=== PATIENT | female | born 1940 | race Caucasian/White ===

== ENCOUNTER → 2018-11-27 15:04 | Outpatient (CLI) | payer MEDICARE, MEDICAID, SELFPAY ==
--- NOTE | 2018-11-27 15:08 | DI.ECHO.S_ITS ---
[place] [facility]---------+ [facility] +---------+ : : [address] : [address] : : : : [id number] : : : : Phone: [phone]+ Echocardiogram Report + + :Name: ROCIO CARRASQUILLO Study Date: 11/27/2018 Height: 67 in : :[facility] Exam Location: [facility] Weight: 124 lb : : Gender: Female BSA: 1.7 m2 : :: 1940 Age: 78 yrs BP: 148/80 mmHg: :Reason For Study: CHF : : Performed By: Tahir Butler : :Referring: MYLA KRAUS R : + + Interpretation Summary The left ventricle is normal in size. Left ventricular systolic function is normal without focal wall motion abnormalities. The ejection fraction is estimated to be 60-65%. Left ventricular systolic function has markedly improved compared to the previous exam. The right ventricle is normal in size and function. The right ventricular systolic pressure is estimated to be at least 35 mmHg based on an estimated right atrial pressure of 3 mm Hg. Both atria are severely dilated. There is borderline mitral valve prolapse. There is moderate to severe mitral regurgitation. Compared to the prior echo study, there has been an increase in the severity of mitral regurgitation. There is no other significant valvular heart disease. The aortic root is normal size. Procedure: A two-dimensional transthoracic echocardiogram with color flow and Doppler was performed. The study quality was technically good. Comparison is made with the echocardiogram of 12/17/14. The patient was in atrial fibrillation with rapid ventricular response during the exam with a heart rate exceeding 100 bpm. The patient had a heart rate of 80-118 beats per minute. Left Ventricle: The left ventricle is normal in size. There is normal left ventricular wall thickness. Left ventricular systolic function is normal without focal wall motion abnormalities. The ejection fraction is estimated to be 60-65%. Left ventricular systolic function has markedly improved compared to the previous exam. Right Ventricle: The right ventricle is normal in size and function. Atria: Both atria are severely dilated. The interatrial septum is intact with no evidence for an atrial septal defect. Mitral Valve: The mitral valve is normal in structure but abnormal in function. There is borderline mitral valve prolapse. There is moderate to severe mitral regurgitation. Compared to the prior echo study, there has been an increase in the severity of mitral regurgitation. Aortic Valve: The aortic valve is trileaflet. The aortic valve opens well. No aortic regurgitation is present. Tricuspid Valve: The tricuspid valve is normal in structure and function. There is mild tricuspid regurgitation. The right ventricular systolic pressure is estimated to be at least 35 mmHg based on an estimated right atrial pressure of 3 mm Hg. Pulmonic Valve: The pulmonic valve is normal in structure and function. There is trace pulmonic regurgitation. There is no other significant valvular heart disease. Great Vessels: The aortic root is normal size. The dimensions of the ascending aorta are normal. The pulmonary artery is normal size. The IVC is of normal diameter and collapses greater than 50% with a sniff. This suggests a low right atrial pressure of 3 mm Hg. Pericardium/ Pleura There is no pericardial effusion. There is no pleural effusion. MMode/2D Measurements & Calculations LVIDd: 4.3 cm LVOT diam: 2.0 cm LVIDs: 2.7 cm Ao root diam: 3.2 cm FS: 36.8 % Aortic Jxn: 2.1 cm EPSS: 0.45 cm asc Aorta Diam: 3.3 cm IVSd: 0.87 cm Ao Arch Diam (Prox Trans): 2.5 cm LVPWd: 0.76 cm LV pierce. diameter/BSA (cm/m^2): 2.6 LV sys. diameter/BSA (cm/m^2): 1.7 LA A2 area: 31.2 cm2 RA long axis: 5.7 cm LA A4 area: 30.9 cm2 RA area: 25.5 cm2 LA length (vol): 6.8 cm RA vol: 96.6 ml LA vol: 119.7 ml RA : 58.5 ml/m2 LA vol index: 72.5 ml/m2 IVC diam: 2.0 cm RVD1 (basal): 4.0 cm RVD2 (mid): 3.1 cm Doppler Measurements & Calculations Ao V2 max: 92.6 cm/sec LVOT Max Miguel: 65.9 cm/sec Ao V2 mean: 68.4 cm/sec LV V1 max P.8 mmHg Ao max P.5 mmHg LV V1 VTI: 12.0 cm Ao mean P.0 mmHg DEEPTHI(I,D): 2.4 cm2 Ao V2 VTI: 15.5 cm DEEPTHI(V,D): 2.2 cm2 sev ratio: 0.78 DEEPTHI indexed to BSA (cm^2/m^2): 1.4 MV E max miguel: 85.0 cm/sec TR max miguel: 280.7 cm/sec MV A max miguel: 1.4 cm/sec TR max P.7 mmHg MV E/A: 60.6 PA V2 max: 55.7 cm/sec Med Peak E' Miguel: 4.0 cm/sec PA V2 mean: 44.0 cm/sec E/E' med: 21.1 PA mean P.81 mmHg Lat Peak E' Miguel: 11.2 cm/sec PA pr(Accel): 42.4 mmHg E/E' lat: 7.6 PA Accel Time: 0.07 sec E/e' average: 14.4 MV dec time: 0.13 sec SV(LVOT): 36.5 ml Reading Physician:07:02 PM
== END ==
PROVIDERS: PCP Student in an Organized Health Care Education/Training Program; Visit Provider Internal Medicine
DX: I08.1 Rheumatic disorders of both mitral and tricuspid valves (principal); I11.0 Hypertensive heart disease with heart failure; I50.20 Unspecified systolic (congestive) heart failure
CPT/HCPCS: 93306

== ENCOUNTER 2020-08-27 10:40 | Emergency (ER) | payer MEDICARE, MEDICAID, SELFPAY ==
[2020-08-27] VITALS (17 sets, daily range): BP systolic 111–164; BP diastolic 64–97; PULSE 76–99; RESP 14–18; TEMP 36.1–36.9; O2SAT 96–100; BMI 18.5
[2020-08-27 12:52] LABS: Add Manual Diff / Slide Review NO; Basophils Absolute Auto 100 /uL (0-100); Basophils Percent Auto 0.8 % (0-2); Eosinophils Absolute Auto 100 /uL (0-450); Eosinophils Percent Auto 0.5 % (2-4); Hematocrit 44.8 % (36-46); Hemoglobin 14.7 g/dL (12.0-16.0); Lymphocytes Absolute Auto 1000 /uL (1100-4500); Mean Corpuscular HGB Conc 32.7 % (30-36); Mean Corpuscular Hemoglobin 31.4 PG (26-34); Monocytes Absolute Auto 800 /uL (0-900); Monocytes Percent Auto 7.2 % (3-14); Neutrophils Absolute Auto 9400 /uL (1500-7000); Neutrophils Percent Auto 82.5 % (50-75); Platelet Count 171 X10^3/uL (150-400); Red Blood Cell Count 4.66 X10^6/uL (4.0-5.2); Red Cell Distribution Width 14.2 % (11.6-14.8); White Blood Cell Count 11.5 X10^3/uL (4.5-11.0)
[2020-08-27 12:58] LABS: Alanine Aminotransferase 15 IU/L (<35); Albumin 4.7 g/dL (3.5-5.0); Albumin Globulin Ratio 1.4 (1.0-2.8); Alkaline Phosphatase 131 U/L (38-126); Aspartate Aminotransferase 28 IU/L (14-36); BUN Creatinine Ratio 32.5 (6-22); Blood Urea Nitrogen 50 mg/dL (7-17); Calcium 10.1 mg/dL (8.4-10.2); Carbon Dioxide 25 mmol/L (22-32); Chloride 103 mmol/L (98-107); Estimated Glomerular Filt Rate 32.5 mL/min (>60); Globulin 3.4 g/dL (1.7-4.1); Glucose 107 mg/dL (80-110); HEMOLYSIS < 15 (0-50); Potassium 4.7 mmol/L (3.4-5.1); Sodium 137 mmol/L (137-145); Total Protein 8.1 g/dL (6.3-8.2)
[2020-08-27] MEDS: SODIUM CHLORIDE 0.9% 1,000 ML 150 ML IV (13:40)
--- NOTE | 2020-08-27 14:28 | PC.NURSE ---
pt states that she will be getting her ptt drawn next week. requested to have it drawn today.
[2020-08-27 14:39] LABS: PTT Partial Thromboplastin Tim 45 SECONDS (26.4-36.2)
[2020-08-27 14:41] LABS: RBC Urine None Seen (0-5/HPF)
[2020-08-27 14:50] LABS: Appearance Urine UA CLEAR; Bilirubin Urine UA NEGATIVE (NEGATIVE); Color Urine UA YELLOW; Glucose Urine UA NEGATIVE (Negative); Ketones Urine UA NEGATIVE (NEGATIVE); Leukocyte Esterase Urine UA NEGATIVE (NEGATIVE); Nitrite Urine UA NEGATIVE (Negative); Occult Blood Urine UA NEGATIVE (Negative); Protein Urine UA NEGATIVE (Negative); Specific Gravity Urine UA <=1.005 (1.000-1.035); Urobilinogen Urine UA 0.2 E.U./dL (0.2)
[2020-08-27 14:57] LABS: pH Urine UA 6.5 (4.5-8.0)
[2020-08-27 15:01] LABS: Bacteria Urine Few (2-10); Culture Indicated Urine Cult Not Indicated; Squamous Epithelial Cell Urine 1-5 /HPF (0-5/HPF); WBC Urine 0-1/HPF (0-5/HPF)
--- NOTE | 2020-08-27 15:02 | ED.NAVMDI ---
HPI - Nausea/Vomiting/Diarrhea General Chief complaint: Nausea/Vomiting/Diarrhea Stated complaint: dairrhea Time Seen by Provider: 08/27/20 15:01 Source: patient Mode of arrival: Ambulatory Limitations: no limitations History of Present Illness HPI Narrative: Patient is a 79-year-old female who presents with 1 month of ongoing diarrhea. She states that her neighbor told her to start taking anti diarrheal medicine pain it has started taking effect and now her stool is hard. Today she states that she feels weak and shaky. She denies any chest pain or shortness of breath. She has no nausea or vomiting no fevers or chills. She actually has been in the emergency department for number of hours without any episodes of diarrhea. She denies any antibiotic use. MD complaint: diarrhea Description of Vomiting: watery Related Data Home Medications Medication Instructions Recorded Confirmed aspirin 81 mg tablet,delayed 81 mg PO DAILY 07/05/18 08/27/20 release Previous Rx's Medication Instructions Recorded atorvastatin 40 mg tablet 40 mg PO DAILY #90 tab 03/04/20 lisinopril 10 mg tablet 10 mg PO DAILY #90 tab 03/23/20 metoprolol tartrate 25 mg tablet 12.5 mg PO BID #90 tab 04/07/20 warfarin 1 mg tablet 1 mg PO QDAY #90 tab 04/22/20 spironolactone 25 mg tablet 25 mg PO QDAY #90 tab 05/19/20 Allergies Allergy/AdvReac Type Severity Reaction Status Date / Time Horse/Equine Containing Allergy Unknown Verified 08/27/20 10:47 Products rabies vaccine,purified Allergy Unknown Verified 08/27/20 10:47 chick-rolan [RABIES VACCINE ([facility])] Review of Systems Review of Systems Narrative: GENERAL: Denies chills, fatigue, malaise, fever, sweats, travel HEENT: Denies sinus pain, ear pain, sore throat, difficulty swallowing, neck pain RESPIRATORY: Denies dyspnea, cough, wheezing, hemoptysis, sputum. CARDIOVASCULAR: Denies chest pain, palpitations, orthopnea, edema GASTROINTESTINAL: See HPI : Denies dysuria, frequency, incontinence, hematuria, urinary retention, flank pain. MUSCULOSKELETAL: Denies weakness, joint pain, or bony pain SKIN: No rash, no erythema, no pruritus NEUROLOGIC: Denies weakness, dizziness, headache, numbness, change in speech, confusion PSYCHIATRIC: No concerning psychosocial issues. 12 point review of systems is negative except for those stated above and HPI Patient History Medical History Acne (~1948) Anesthesia Depression Endometriosis (~1999) Fractures Herpes (~1974) History of urinary incontinence Measles (~1946) Osteoarthritis (~1985) Shortness of breath (~2014) Stroke (~2014) Suicidal ideation (~2014) Vision disorder Surgical History History of hip replacement (~2007) Family History Father Diabetes mellitus Brother Suicide Grandfather Heart disease Grandmother Heart disease Mother Alzheimer's disease Grandfather Alzheimer's disease Grandmother Tuberculosis Social History Smoking Status: Former smoker Smoking Status: Former smoker alcohol intake frequency: holidays/special occasions only Substance Use Type: marijuana Exam Initial Vital Signs Initial Vital Signs: Vital Signs Temperature 96.9 F L 08/27/20 10:47 Pulse Rate 97 H 08/27/20 10:47 Respiratory Rate 14 08/27/20 10:47 Blood Pressure 133/72 08/27/20 10:47 Pulse Oximetry 99 08/27/20 10:47 GENERAL: Alert 79-year-old female and in [no acute] distress. HEENT: Head atraumatic,EOMI, pupils reactive, face symmetric, [moist] mucous membranes CARDIOVASCULAR: Regular rate and rhythm without murmurs, rubs or gallops. RESPIRATORY: Breath sounds equal bilaterally, no wheezes rales or rhonchi. ABDOMEN: Soft, nontender. Normoactive bowel sounds all 4 quadrants. No guarding or rebound. EXTREMITIES: Normal range of motion, no clubbing or edema. Neurovascularly intact NEUROLOGICAL: Alert and oriented x4.Normal gait and speech. SKIN: Warm, dry, no laceration, no petechiae, no rashes or lesions. Course Orders Ordered: ED Orders 08/27/20 12:12 CMP [Comprehensive Metabolic Panel] Stat Complete Blood Count AUTO DIFF Stat PTT [Partial Thromboplastin Time] Stat Prothrombin Time INR Stat 08/27/20 13:48 Urinalysis and Microscopic Stat Discontinued Medications Sodium Chloride (Normal Saline 0.9%) 1,000 mls @ 150 mls/hr IV BOLUS ONE Stop: 08/27/20 20:19 Last Infusion: 08/27/20 17:03 Dose: 0 mls/hr Documented by: Admin: 08/27/20 13:40 Dose: 150 mls/hr Documented by: ADITYA Vital Signs Vital signs: Vital Signs - 8 hr 08/27/20 12:02 08/27/20 12:05 08/27/20 12:14 Temperature 98.5 F Pulse Rate 76 95 H 77 Respiratory Rate Blood Pressure 164/76 H 133/84 Pulse Oximetry 99 99 99 08/27/20 12:30 08/27/20 13:00 08/27/20 13:30 Temperature Pulse Rate 87 99 H 89 Respiratory Rate Blood Pressure 132/82 142/92 H 143/82 H Pulse Oximetry 99 100 97 08/27/20 14:00 08/27/20 14:30 08/27/20 14:31 Temperature Pulse Rate 98 H 96 H 89 Respiratory Rate Blood Pressure 148/97 H 124/80 Pulse Oximetry 100 96 96 08/27/20 15:00 08/27/20 15:18 08/27/20 15:30 Temperature Pulse Rate 85 98 H 86 Respiratory Rate 18 Blood Pressure 111/64 156/89 H 145/91 H Pulse Oximetry 97 99 99 08/27/20 16:00 08/27/20 16:30 08/27/20 17:03 Temperature Pulse Rate 95 H 90 Respiratory Rate 18 Blood Pressure 148/96 H 140/88 144/73 H Pulse Oximetry 100 99 08/27/20 17:04 Temperature Pulse Rate 90 Respiratory Rate 16 Blood Pressure Pulse Oximetry 97 MDM - Nausea/Vomiting/Diarrhea Lab Data Attestation: I reviewed the patient's lab results. Result diagrams: 08/27/20 12:12 08/27/20 12:12 Labs: Lab Results 08/27/20 08/27/20 08/27/20 Range/Units 12:12 12:12 12:12 WBC 11.5 H (4.5-11.0) X10^3/uL RBC 4.66 (4.0-5.2) X10^6/uL Hgb 14.7 (12.0-16.0) g/dL Hct 44.8 (36-46) % MCV 96.0 (80-100) fL MCH 31.4 (26-34) PG MCHC 32.7 (30-36) % RDW 14.2 (11.6-14.8) % Plt Count 171 (150-400) X10^3/uL Neut % (Auto) 82.5 H (50-75) % Lymph % (Auto) 9.0 L (25-40) % [place] % (Auto) 7.2 (3-14) % Eos % (Auto) 0.5 L (2-4) % Baso % (Auto) 0.8 (0-2) % Neut # (Auto) 9400 H (4666-8035) /uL Lymph # (Auto) 1000 L (2828-6163) /uL [place] # (Auto) 800 (0-900) /uL Eos # (Auto) 100 (0-450) /uL Baso # (Auto) 100 (0-100) /uL PT (10.1-12.7) SECONDS INR (0.9-1.3) APTT 45 H (26.4-36.2) SECONDS Sodium 137 (137-145) mmol/L Potassium 4.7 (3.4-5.1) mmol/L Chloride 103 (98-107) mmol/L Carbon Dioxide 25 (22-32) mmol/L BUN 50 H (7-17) mg/dL Creatinine 1.54 H (0.52-1.04) mg/dL Estimated GFR 32.5 L (>60) mL/min BUN/Creatinine Ratio 32.5 H (6-22) Glucose 107 (80-110) mg/dL Calcium 10.1 (8.4-10.2) mg/dL Total Bilirubin 1.0 (0.2-1.3) mg/dL AST 28 (14-36) IU/L ALT 15 (<35) IU/L Alkaline Phosphatase 131 H (38-126) U/L Total Protein 8.1 (6.3-8.2) g/dL Albumin 4.7 (3.5-5.0) g/dL Globulin 3.4 (1.7-4.1) g/dL Albumin/Globulin Ratio 1.4 (1.0-2.8) Urine Color Urine Appearance Urine pH (4.5-8.0) Ur Specific [place] (1.000-1.035) Urine Protein (Negative) Urine Glucose (UA) (Negative) g/dL Urine Ketones (NEGATIVE) Urine Occult Blood (Negative) Urine Nitrate (Negative) Urine Bilirubin (NEGATIVE) Urine Urobilinogen (0.2) E.U./dL Ur Leukocyte Esterase (NEGATIVE) Urine RBC (0-5/HPF) Urine WBC (0-5/HPF) Ur Squamous Epith Cells (0-5/HPF) Urine Bacteria (None) Ur Culture Indicated? 08/27/20 08/27/20 Range/Units 12:12 13:48 WBC (4.5-11.0) X10^3/uL RBC (4.0-5.2) X10^6/uL Hgb (12.0-16.0) g/dL Hct (36-46) % MCV (80-100) fL MCH (26-34) PG MCHC (30-36) % RDW (11.6-14.8) % Plt Count (150-400) X10^3/uL Neut % (Auto) (50-75) % Lymph % (Auto) (25-40) % [place] % (Auto) (3-14) % Eos % (Auto) (2-4) % Baso % (Auto) (0-2) % Neut # (Auto) (7356-0130) /uL Lymph # (Auto) (8109-5223) /uL [place] # (Auto) (0-900) /uL Eos # (Auto) (0-450) /uL Baso # (Auto) (0-100) /uL PT 29.4 H (10.1-12.7) SECONDS INR 2.5 H (0.9-1.3) APTT (26.4-36.2) SECONDS Sodium (137-145) mmol/L Potassium (3.4-5.1) mmol/L Chloride (98-107) mmol/L Carbon Dioxide (22-32) mmol/L BUN (7-17) mg/dL Creatinine (0.52-1.04) mg/dL Estimated GFR (>60) mL/min BUN/Creatinine Ratio (6-22) Glucose (80-110) mg/dL Calcium (8.4-10.2) mg/dL Total Bilirubin (0.2-1.3) mg/dL AST (14-36) IU/L ALT (<35) IU/L Alkaline Phosphatase (38-126) U/L Total Protein (6.3-8.2) g/dL Albumin (3.5-5.0) g/dL Globulin (1.7-4.1) g/dL Albumin/Globulin Ratio (1.0-2.8) Urine Color Yellow Urine Appearance Clear Urine pH 6.5 (4.5-8.0) Ur Specific [place] <=1.005 (1.000-1.035) Urine Protein Negative (Negative) Urine Glucose (UA) Negative (Negative) g/dL Urine Ketones Negative (NEGATIVE) Urine Occult Blood Negative (Negative) Urine Nitrate Negative (Negative) Urine Bilirubin Negative (NEGATIVE) Urine Urobilinogen 0.2 (0.2) E.U./dL Ur Leukocyte Esterase Negative (NEGATIVE) Urine RBC None seen (0-5/HPF) Urine WBC 0-1/hpf (0-5/HPF) Ur Squamous Epith Cells 1-5 /hpf (0-5/HPF) Urine Bacteria Few (2-10) H (None) Ur Culture Indicated? Cult not indicated MDM Narrative Medical decision making narrative: Patient is found to have elevated creatinine 1.5 previous creatinine in 2018 was 1.1 she also has elevated BUN of 50 previous BUN was 38. She is given 1 L of fluid and overall feeling significantly better. He has not had any episodes of diarrhea in the emergency department. I recommend she follow-up with her primary care provider and have a stool sample. Discharge Plan Departure Patient Disposition: Home Clinical Impression: Diarrhea Qualifiers: Diarrhea type: unspecified type Qualified Code(s): R19.7 - Diarrhea, unspecified Instructions: Diarrhea Activity Restrictions/Additional Instructions: *You have been diagnosed with diarrhea *What to do: At this time I strongly recommend he follow up with her primary care provider for stool sample. Blood work today is overall reassuring no sign of infection INR today is 2.5. *Continue to take medications as directed May continue to take antidiarrheals if making her stool form *Follow up with your primary care provider in 2-3 days *Return to ER if you should have increasing abdominal pain, passing out, nausea, vomiting worsening diarrhea or any new, worsening or concerning symptoms Prescriptions: No Action atorvastatin 40 mg tablet 40 mg PO DAILY Qty: 90 RF: 3 lisinopril 10 mg tablet 10 mg PO DAILY Qty: 90 RF: 3 metoprolol tartrate 25 mg tablet 12.5 mg PO BID Qty: 90 RF: 3 warfarin 1 mg tablet 1 mg PO QDAY Qty: 90 RF: 1 spironolactone [Aldactone] 25 mg tablet 25 mg PO QDAY Qty: 90 RF: 0 aspirin 81 mg tablet,delayed release (DR/EC) 81 mg PO DAILY RF: 0 Referrals: Dakota Lay MD [Primary Care Provider] -
[2020-08-27 15:44] LABS: INR 2.5 (0.9-1.3); Prothrombin Time 29.4 SECONDS (10.1-12.7)
== END 2020-08-27 17:05 | disposition home or self-care (01) ==
PROVIDERS: Emergency Provider Emergency Medicine; PCP Student in an Organized Health Care Education/Training Program
DX: R19.7 Diarrhea, unspecified (principal); R79.89 Other specified abnormal findings of blood chemistry
CPT/HCPCS: 36415; 80053; 81001; 85025; 85610; 85730; 96360; 96361; 99284

== ENCOUNTER → 2020-09-03 16:44 | Outpatient (CLI) | payer MEDICARE, MEDICAID, SELFPAY ==
[2020-09-03 18:32] LABS: Blood Urea Nitrogen 24 mg/dL (7-17); Calcium 9.7 mg/dL (8.4-10.2); Carbon Dioxide 30 mmol/L (22-32); Chloride 104 mmol/L (98-107); Estimated Glomerular Filt Rate 38.5 mL/min (>60); Glucose 117 mg/dL (80-110); HEMOLYSIS 16 (0-50); Potassium 4.9 mmol/L (3.4-5.1); Sodium 139 mmol/L (137-145)
== END ==
PROVIDERS: PCP Student in an Organized Health Care Education/Training Program; Referring Provider Student in an Organized Health Care Education/Training Program; Visit Provider Student in an Organized Health Care Education/Training Program
DX: N17.9 Acute kidney failure, unspecified (principal)
CPT/HCPCS: 36415; 80048

== ENCOUNTER → 2020-11-20 12:57 | Outpatient (CLI) | payer MEDICARE, MEDICAID, SELFPAY ==
[2020-11-20 15:35] LABS: INR 2.2 (0.9-1.3); Prothrombin Time 25.1 SECONDS (10.1-12.7)
== END ==
PROVIDERS: PCP Student in an Organized Health Care Education/Training Program; Referring Provider Student in an Organized Health Care Education/Training Program; Visit Provider Student in an Organized Health Care Education/Training Program
DX: Z79.01 Long term (current) use of anticoagulants (principal)
CPT/HCPCS: 36415; 85610

== ENCOUNTER → 2021-01-22 12:14 | Outpatient (CLI) | payer MEDICARE, MEDICAID, SELFPAY ==
[2021-01-22 14:41] LABS: INR 3.3 (0.9-1.3); Prothrombin Time 38.9 SECONDS (10.1-12.7)
== END ==
PROVIDERS: PCP Student in an Organized Health Care Education/Training Program; Referring Provider Student in an Organized Health Care Education/Training Program; Visit Provider Student in an Organized Health Care Education/Training Program
DX: Z79.01 Long term (current) use of anticoagulants (principal)
CPT/HCPCS: 36415; 85610

== ENCOUNTER → 2021-02-17 13:45 | Outpatient (CLI) | payer MEDICARE, MEDICAID, SELFPAY ==
[2021-02-17 14:51] LABS: INR 2.2 (0.9-1.3); Prothrombin Time 25.8 SECONDS (10.1-12.7)
== END ==
PROVIDERS: PCP Student in an Organized Health Care Education/Training Program; Referring Provider Student in an Organized Health Care Education/Training Program; Visit Provider Student in an Organized Health Care Education/Training Program
DX: Z79.01 Long term (current) use of anticoagulants (principal)
CPT/HCPCS: 36415; 85610

== ENCOUNTER → 2021-04-02 10:37 | Outpatient (CLI) | payer MEDICARE, MEDICAID, SELFPAY ==
[2021-04-02 11:30] LABS: INR 2.5 (0.9-1.3); Prothrombin Time 28.6 SECONDS (10.1-12.7)
== END ==
PROVIDERS: PCP Student in an Organized Health Care Education/Training Program; Referring Provider Student in an Organized Health Care Education/Training Program; Visit Provider Student in an Organized Health Care Education/Training Program
DX: Z79.01 Long term (current) use of anticoagulants (principal)
CPT/HCPCS: 36415; 85610

== ENCOUNTER → 2021-05-14 13:00 | Outpatient (CLI) | payer MEDICARE, MEDICAID, SELFPAY ==
[2021-05-14 14:28] LABS: INR 3.2 (0.9-1.3); Prothrombin Time 36.7 SECONDS (10.1-12.7)
== END ==
PROVIDERS: PCP Student in an Organized Health Care Education/Training Program; Referring Provider Student in an Organized Health Care Education/Training Program; Visit Provider Student in an Organized Health Care Education/Training Program
DX: Z79.01 Long term (current) use of anticoagulants (principal)
CPT/HCPCS: 36415; 85610

== ENCOUNTER → 2021-06-04 12:07 | Outpatient (CLI) | payer MEDICARE, MEDICAID, SELFPAY ==
[2021-06-04 13:02] LABS: INR 1.9 (0.9-1.3)
== END ==
PROVIDERS: PCP Student in an Organized Health Care Education/Training Program; Referring Provider Student in an Organized Health Care Education/Training Program; Visit Provider Student in an Organized Health Care Education/Training Program
DX: Z79.01 Long term (current) use of anticoagulants (principal)
CPT/HCPCS: 36415; 85610

== ENCOUNTER → 2021-06-23 14:31 | Outpatient (CLI) | payer MEDICARE, MEDICAID, SELFPAY ==
[2021-06-23 15:03] LABS: INR 2.1 (0.9-1.3); Prothrombin Time 23.7 SECONDS (10.1-12.7)
== END ==
PROVIDERS: PCP Student in an Organized Health Care Education/Training Program; Referring Provider Student in an Organized Health Care Education/Training Program; Visit Provider Student in an Organized Health Care Education/Training Program
DX: Z79.01 Long term (current) use of anticoagulants (principal)
CPT/HCPCS: 36415; 85610

== ENCOUNTER → 2021-08-06 12:07 | Outpatient (CLI) | payer MEDICARE, MEDICAID, SELFPAY ==
[2021-08-06 14:17] LABS: INR 2.9 (0.9-1.3)
== END ==
PROVIDERS: PCP Student in an Organized Health Care Education/Training Program; Referring Provider Student in an Organized Health Care Education/Training Program; Visit Provider Student in an Organized Health Care Education/Training Program
DX: Z79.01 Long term (current) use of anticoagulants (principal)
CPT/HCPCS: 36415; 85610

== ENCOUNTER → 2021-09-24 12:35 | Outpatient (CLI) | payer MEDICARE, MEDICAID, SELFPAY ==
[2021-09-24 13:30] LABS: INR 3.7 (0.9-1.3); Prothrombin Time 42.7 SECONDS (10.1-12.7)
== END ==
PROVIDERS: PCP Student in an Organized Health Care Education/Training Program; Referring Provider Student in an Organized Health Care Education/Training Program; Visit Provider Student in an Organized Health Care Education/Training Program
DX: Z79.01 Long term (current) use of anticoagulants (principal)
CPT/HCPCS: 36415; 85610

== ENCOUNTER → 2021-10-08 13:32 | Outpatient (CLI) | payer MEDICARE, MEDICAID, SELFPAY ==
[2021-10-08 14:21] LABS: INR 1.5 (0.9-1.3); Prothrombin Time 16.6 SECONDS (10.1-12.7)
== END ==
PROVIDERS: PCP Student in an Organized Health Care Education/Training Program; Referring Provider Student in an Organized Health Care Education/Training Program; Visit Provider Student in an Organized Health Care Education/Training Program
DX: Z79.01 Long term (current) use of anticoagulants (principal)
CPT/HCPCS: 36415; 85610

== ENCOUNTER → 2021-10-27 13:28 | Outpatient (CLI) | payer MEDICARE, MEDICAID, SELFPAY ==
[2021-10-27 14:12] LABS: INR 2.8 (0.9-1.3)
[2021-10-27 14:30] LABS: Alanine Aminotransferase 23 IU/L (<35); Albumin 3.8 g/dL (3.5-5.0); Albumin Globulin Ratio 1.3 (1.0-2.8); Alkaline Phosphatase 98 U/L (38-126); Aspartate Aminotransferase 32 IU/L (14-36); BUN Creatinine Ratio 18.3 (6-22); Bilirubin Total 0.6 mg/dL (0.2-1.3); Blood Urea Nitrogen 20 mg/dL (7-17); Calcium 8.6 mg/dL (8.4-10.2); Carbon Dioxide 31 mmol/L (22-32); Chloride 103 mmol/L (98-107); Estimated Glomerular Filt Rate 51 mL/min (>60); Globulin 2.9 g/dL (1.7-4.1); Glucose 89 mg/dL (80-110); HEMOLYSIS < 15 (0-50); Potassium 3.9 mmol/L (3.4-5.1); Sodium 139 mmol/L (137-145); Total Protein 6.7 g/dL (6.3-8.2)
== END ==
PROVIDERS: PCP Student in an Organized Health Care Education/Training Program; Referring Provider Student in an Organized Health Care Education/Training Program; Visit Provider Student in an Organized Health Care Education/Training Program
DX: N17.9 Acute kidney failure, unspecified (principal); I10 Essential (primary) hypertension; Z79.899 Other long term (current) drug therapy; Z79.01 Long term (current) use of anticoagulants
CPT/HCPCS: 36415; 80053; 85610

== ENCOUNTER → 2021-11-19 13:19 | Outpatient (CLI) | payer MEDICARE, MEDICAID, SELFPAY ==
[2021-11-19 14:52] LABS: INR 2.2 (0.9-1.3); Prothrombin Time 25.3 SECONDS (10.1-12.7)
== END ==
PROVIDERS: PCP Student in an Organized Health Care Education/Training Program; Referring Provider Student in an Organized Health Care Education/Training Program; Visit Provider Student in an Organized Health Care Education/Training Program
DX: Z79.01 Long term (current) use of anticoagulants (principal)
CPT/HCPCS: 36415; 85610

== ENCOUNTER → 2021-12-03 13:16 | Outpatient (CLI) | payer MEDICARE, MEDICAID, SELFPAY ==
[2021-12-03 14:31] LABS: INR 2.2 (0.9-1.3); Prothrombin Time 25.6 SECONDS (10.1-12.7)
== END ==
PROVIDERS: PCP Student in an Organized Health Care Education/Training Program; Referring Provider Student in an Organized Health Care Education/Training Program; Visit Provider Student in an Organized Health Care Education/Training Program
DX: I48.91 Unspecified atrial fibrillation (principal); Z79.01 Long term (current) use of anticoagulants
CPT/HCPCS: 36415; 85610

== ENCOUNTER → 2022-01-07 13:32 | Outpatient (CLI) | payer MEDICARE, MEDICAID, SELFPAY ==
[2022-01-07 14:22] LABS: INR 2.5 (0.9-1.3); Prothrombin Time 29.3 SECONDS (10.1-12.7)
== END ==
PROVIDERS: PCP Student in an Organized Health Care Education/Training Program; Referring Provider Student in an Organized Health Care Education/Training Program; Visit Provider Student in an Organized Health Care Education/Training Program
DX: I48.91 Unspecified atrial fibrillation (principal); Z79.01 Long term (current) use of anticoagulants; Z79.899 Other long term (current) drug therapy
CPT/HCPCS: 36415; 85610

== ENCOUNTER → 2022-02-11 10:57 | Outpatient (CLI) | payer MEDICARE, MEDICAID, SELFPAY ==
[2022-02-11 12:41] LABS: INR 2.7 (0.9-1.3); Prothrombin Time 30.8 SECONDS (10.1-12.7)
== END ==
PROVIDERS: PCP Student in an Organized Health Care Education/Training Program; Referring Provider Student in an Organized Health Care Education/Training Program; Visit Provider Student in an Organized Health Care Education/Training Program
DX: I48.91 Unspecified atrial fibrillation (principal); Z79.01 Long term (current) use of anticoagulants
CPT/HCPCS: 36415; 85610

== ENCOUNTER → 2022-03-18 13:25 | Outpatient (CLI) | payer MEDICARE, MEDICAID, SELFPAY ==
[2022-03-18 15:27] LABS: INR 1.5 (0.9-1.3); Prothrombin Time 17.3 SECONDS (10.1-12.7)
== END ==
PROVIDERS: PCP Student in an Organized Health Care Education/Training Program; Referring Provider Student in an Organized Health Care Education/Training Program; Visit Provider Student in an Organized Health Care Education/Training Program
DX: I48.91 Unspecified atrial fibrillation (principal); Z79.01 Long term (current) use of anticoagulants
CPT/HCPCS: 36415; 85610

== ENCOUNTER → 2022-05-30 13:49 | Outpatient (CLI) | payer MEDICARE, MEDICAID, SELFPAY ==
[2022-05-30 14:52] LABS: Prothrombin Time 22.6 SECONDS (10.1-12.7)
== END ==
PROVIDERS: PCP Student in an Organized Health Care Education/Training Program; Referring Provider Student in an Organized Health Care Education/Training Program; Visit Provider Student in an Organized Health Care Education/Training Program
DX: I48.91 Unspecified atrial fibrillation (principal); Z79.01 Long term (current) use of anticoagulants
CPT/HCPCS: 36415; 85610

== ENCOUNTER → 2023-05-30 11:27 | Outpatient (CLI) | payer MEDICARE, MEDICAID, SELFPAY ==
[2023-05-30 15:09] LABS: Creatinine Urine Random 7.2 mg/dL
[2023-05-30 15:13] LABS: Microalbumi Creatinin Ratio Ur 361.1 ug/mg CR (<30); Microalbumin Urine Random 2.6 mg/dL (0-1.6)
== END ==
PROVIDERS: PCP Nurse Practitioner; Visit Provider Nurse Practitioner
DX: I10 Essential (primary) hypertension (principal); I50.20 Unspecified systolic (congestive) heart failure; I48.91 Unspecified atrial fibrillation
CPT/HCPCS: 82043; 82570

== ENCOUNTER → 2023-07-07 11:32 | Outpatient (CLI) | payer MEDICARE, MEDICAID, SELFPAY ==
[2023-07-07 13:09] LABS: INR 2.3 (0.9-1.3); Prothrombin Time 26.2 SECONDS (9.4-12.5)
== END ==
PROVIDERS: PCP Nurse Practitioner; Referring Provider Nurse Practitioner; Visit Provider Nurse Practitioner
DX: Z79.01 Long term (current) use of anticoagulants (principal); I48.11 Longstanding persistent atrial fibrillation
CPT/HCPCS: 36415; 85610

== ENCOUNTER → 2023-08-31 11:51 | Outpatient (CLI) | payer MEDICARE, MEDICAID, SELFPAY ==
[2023-08-31 12:31] LABS: INR 2.7 (0.9-1.3); Prothrombin Time 30.9 SECONDS (9.4-12.5)
== END ==
PROVIDERS: PCP Nurse Practitioner; Referring Provider Nurse Practitioner; Visit Provider Nurse Practitioner
DX: I48.11 Longstanding persistent atrial fibrillation (principal); Z79.01 Long term (current) use of anticoagulants; Z79.899 Other long term (current) drug therapy
CPT/HCPCS: 36415; 85610

== ENCOUNTER → 2023-11-24 11:12 | Outpatient (CLI) | payer MEDICARE, MEDICAID, SELFPAY ==
[2023-11-24 12:31] LABS: INR 3.5 (0.9-1.3); Prothrombin Time 40.6 SECONDS (9.4-12.5)
== END ==
PROVIDERS: PCP Nurse Practitioner; Referring Provider Nurse Practitioner; Visit Provider Nurse Practitioner
DX: Z79.01 Long term (current) use of anticoagulants (principal); Z79.899 Other long term (current) drug therapy; I48.11 Longstanding persistent atrial fibrillation
CPT/HCPCS: 36415; 85610

== ENCOUNTER → 2023-12-08 11:28 | Outpatient (CLI) | payer MEDICARE, MEDICAID, SELFPAY ==
[2023-12-08 12:57] LABS: INR 2.8 (0.9-1.3); Prothrombin Time 32.3 SECONDS (9.4-12.5)
== END ==
PROVIDERS: PCP Nurse Practitioner Family; Referring Provider Nurse Practitioner Family; Visit Provider Nurse Practitioner Family
DX: Z79.01 Long term (current) use of anticoagulants (principal); Z79.899 Other long term (current) drug therapy; I48.11 Longstanding persistent atrial fibrillation
CPT/HCPCS: 36415; 85610

== ENCOUNTER → 2024-01-05 11:36 | Outpatient (CLI) | payer MEDICARE, MEDICAID, SELFPAY ==
[2024-01-05 12:22] LABS: INR 3.4 (0.9-1.3); Prothrombin Time 37.3 SECONDS (9.4-12.5)
== END ==
PROVIDERS: PCP Nurse Practitioner Family; Referring Provider Nurse Practitioner Family; Visit Provider Nurse Practitioner Family
DX: I48.11 Longstanding persistent atrial fibrillation (principal); Z79.01 Long term (current) use of anticoagulants; I10 Essential (primary) hypertension
CPT/HCPCS: 36415; 85610

== ENCOUNTER → 2024-02-02 12:45 | Outpatient (CLI) | payer MEDICARE, MEDICAID, SELFPAY ==
[2024-02-02 13:20] LABS: INR 3.2 (0.9-1.3); Prothrombin Time 34.7 SECONDS (9.4-12.5)
== END ==
PROVIDERS: PCP Nurse Practitioner Family; Referring Provider Nurse Practitioner Family; Visit Provider Nurse Practitioner Family
DX: I48.11 Longstanding persistent atrial fibrillation (principal); Z79.01 Long term (current) use of anticoagulants
CPT/HCPCS: 36415; 85610

== ENCOUNTER → 2024-03-01 11:24 | Outpatient (CLI) | payer MEDICARE, MEDICAID, SELFPAY ==
[2024-03-01 12:23] LABS: INR 2.4 (0.9-1.3); Prothrombin Time 26.2 SECONDS (9.4-12.5)
== END ==
PROVIDERS: PCP Nurse Practitioner Family; Referring Provider Nurse Practitioner Family; Visit Provider Nurse Practitioner Family
DX: I48.11 Longstanding persistent atrial fibrillation (principal); Z79.01 Long term (current) use of anticoagulants
CPT/HCPCS: 36415; 85610

== ENCOUNTER → 2024-03-29 13:44 | Outpatient (CLI) | payer MEDICARE, MEDICAID, SELFPAY ==
[2024-03-29 14:37] LABS: INR 3.1 (0.9-1.3); Prothrombin Time 33.9 SECONDS (9.4-12.5)
== END ==
PROVIDERS: PCP Nurse Practitioner Family; Referring Provider Nurse Practitioner Family; Visit Provider Nurse Practitioner Family
DX: I48.11 Longstanding persistent atrial fibrillation (principal); Z79.01 Long term (current) use of anticoagulants
CPT/HCPCS: 36415; 85610

== ENCOUNTER → 2024-05-03 14:02 | Outpatient (CLI) | payer MEDICARE, MEDICAID, SELFPAY ==
[2024-05-03 15:34] LABS: INR 3.4 (0.9-1.3); Prothrombin Time 37.2 SECONDS (9.4-12.5)
== END ==
LOC: LAB 14:03
PROVIDERS: PCP Nurse Practitioner Family; Referring Provider Nurse Practitioner Family; Visit Provider Nurse Practitioner Family
DX: I48.11 Longstanding persistent atrial fibrillation (principal); Z79.01 Long term (current) use of anticoagulants
CPT/HCPCS: 36415; 85610

== ENCOUNTER → 2024-05-10 11:26 | Outpatient (CLI) | payer MEDICARE, MEDICAID, SELFPAY ==
[2024-05-10 11:52] LABS: Add Manual Diff / Slide Review NO; Basophils Absolute Auto 100 /uL (0-100); Basophils Percent Auto 1.2 % (0-2); Eosinophils Absolute Auto 100 /uL (0-450); Eosinophils Percent Auto 1.1 % (2-4); Hematocrit 44.4 % (36-46); Hemoglobin 14.6 g/dL (12.0-16.0); Lymphocytes Absolute Auto 1200 /uL (1100-4500); Lymphocytes Percent Auto 16.1 % (25-40); Mean Corpuscular HGB Conc 32.8 % (30-36); Mean Corpuscular Hemoglobin 29.9 PG (26-34); Mean Corpuscular Volume 91.2 fL (80-100); Monocytes Absolute Auto 600 /uL (0-900); Monocytes Percent Auto 8.2 % (3-14); Neutrophils Absolute Auto 5500 /uL (1500-7000); Neutrophils Percent Auto 73.4 % (50-75); Platelet Count 197 X10^3/uL (150-400); Red Blood Cell Count 4.87 X10^6/uL (4.0-5.2); Red Cell Distribution Width 14.8 % (11.6-14.8); White Blood Cell Count 7.4 X10^3/uL (4.5-11.0)
[2024-05-10 11:58] LABS: Hemoglobin A1C% w Est Avg Glu 5.3 % (4.0-6.0)
[2024-05-10 12:01] LABS: INR 4.3 (0.9-1.3); Prothrombin Time 46.5 SECONDS (9.4-12.5)
[2024-05-10 12:08] LABS: Alanine Aminotransferase 15 IU/L (<35); Albumin Globulin Ratio 1.5 (1.0-2.8); Alkaline Phosphatase 130 U/L (38-126); Aspartate Aminotransferase 23 IU/L (14-36); BUN Creatinine Ratio 38.9 (6-22); Bilirubin Total 0.7 mg/dL (0.2-1.3); Blood Urea Nitrogen 35 mg/dL (7-17); Calcium 8.7 mg/dL (8.4-10.2); Carbon Dioxide 31 mmol/L (22-32); Chloride 102 mmol/L (98-107); Estimated Glomerular Filt Rate > 60 mL/min (>60); Globulin 2.7 g/dL (1.7-4.1); Glucose 104 mg/dL (80-110); HEMOLYSIS < 15 (0-50); Potassium 4.1 mmol/L (3.4-5.1); Sodium 139 mmol/L (137-145); Total Protein 6.7 g/dL (6.3-8.2)
[2024-05-10 12:37] LABS: TSH w/ Reflex to FT4 1.92 uIU/mL (0.47-4.68)
== END ==
LOC: LAB 11:27
PROVIDERS: PCP Nurse Practitioner Family; Referring Provider Nurse Practitioner Family; Visit Provider Nurse Practitioner Family
DX: I48.91 Unspecified atrial fibrillation (principal); I50.20 Unspecified systolic (congestive) heart failure; L97.929 Non-pressure chronic ulcer of unspecified part of left lower leg with unspecified severity; L97.919 Non-pressure chronic ulcer of unspecified part of right lower leg with unspecified severity; Z79.01 Long term (current) use of anticoagulants; I48.11 Longstanding persistent atrial fibrillation; I11.0 Hypertensive heart disease with heart failure
CPT/HCPCS: 36415; 80053; 83036; 84443; 85025; 85610

== ENCOUNTER → 2024-05-14 12:00 | Outpatient (CLI) | payer MEDICARE, MEDICAID, SELFPAY ==
[2024-05-14 13:13] LABS: INR 1.5 (0.9-1.3); Prothrombin Time 17.2 SECONDS (9.4-12.5)
== END ==
PROVIDERS: PCP Nurse Practitioner Family; Referring Provider Nurse Practitioner Family; Visit Provider Nurse Practitioner Family
DX: I48.11 Longstanding persistent atrial fibrillation (principal); Z79.899 Other long term (current) drug therapy; Z79.01 Long term (current) use of anticoagulants
CPT/HCPCS: 36415; 85610; 87070; 87075; 87205

== ENCOUNTER → 2024-05-14 12:30 | Outpatient (CLI) | payer MEDICARE, MEDICAID, SELFPAY ==
--- NOTE | 2024-05-14 | OV.WND_ITS ---
PROGRESS NOTE DETAILS PATIENT NAME: ROCIO CARRASQUILLO PATIENT NUMBER: [id number] CLINICIAN: JULIAN ERWIN PATIENT DATE OF : 1940 PHYSICIAN / EQUIPMENT ENGINEERING TECHNICIAN: NICOLE GALICIA PATIENT SUBJECTIVE CHIEF COMPLAINT THIS INFORMATION WAS OBTAINED FROM THE PATIENT. MY LEGS, I INJURED THEM ALLERGIES HORSE/EQUINE CONTAINING PRODUCTS, RABIES VACCINE,PURIFIED CHICK-EMBRYO CELL (PCEC) HPI THIS INFORMATION WAS OBTAINED FROM THE PATIENT. THE FOLLOWING HPI ELEMENTS WERE DOCUMENTED FOR THE PATIENT'S WOUND: LOCATION: BLE DURATION: 02/23/24 CONTEXT: VENOUS THE PATIENT IS AN 83 YEAR OLD FEMALE WITH HISTORY OF CVA, CHF, HYPERTENSION, AND ATRIAL FIBRILLATION WHO WAS REFERRED BY HEATHER YBARRA NP FOR EVALUATION OF ULCERS ON BOTH LOWER EXTREMITIES. THE PATIENT DENIES HAVING ANY PAIN BUT SHE HAS HAD SOME DRAINAGE. SHE HAS BEEN TREATING THE ULCERS WITH BACITRACIN AND PEROXIDE AND HAS RECENTLY COMPLETED A COURSE OF DOXYCYCLINE. THE PATIENT FEELS THAT THE ULCERS ARE STARTING TO GET BETTER. SHE HAS NOT NOTED ANY ERYTHEMA NOR HAS HE HAD ANY FEVER OR CHILLS. THE PATIENT REPORTS A GOOD APPETITE AND DENIES HAVING ANY OTHER RECENT CHANGES IN HER OVERALL HEALTH. SHE HAS HAD SOME INTERMITTENT SWELLING OF HER LOWER EXTREMITIES AND IS ON DIURETIC THERAPY. THE PATIENT HAS NEVER HAD ANY SIMILAR PROBLEMS IN THE PAST AND HAS NO PRIOR HISTORY OF DVT OR VEIN DISORDERS. THE PATIENT IS ON CHRONIC ANTICOAGULATION. ABIS INDICATE BILATERAL PAD. HOSPITAL RECORDS WERE REVIEWED AND THERE ARE NO RECENT CULTURES OR IMAGING STUDIES AVAILABLE. THE PATIENT IS AN EX CIGARETTE SMOKER. LABS: 05/10/24: WBC 7.4, HEMOGLOBIN 14.6, HCT 44.4, ELECTROLYTES UNREMARKABLE, BUN 35, GFR GREATER THAN 60, LFTS NORMAL, ALK PHOS 130 FAMILY HISTORY THIS INFORMATION WAS OBTAINED FROM THE CHART, PATIENT. DIABETES- FATHER HEART DISEASE- PATERNAL GRANDPARENTS OTHER- MOTHER, MATERNAL GRANDPARENTS, [place] SOCIAL HISTORY THIS INFORMATION WAS OBTAINED FROM THE CHART, PATIENT. FORMER SMOKER ROCIO CARRASQUILLO [id number] 1940 LIVES IN: [facility] RETIRED MEDICAL HISTORY THIS INFORMATION WAS OBTAINED FROM THE CHART, PATIENT. PATIENT HAS A MEDICAL HISTORY OF: ANESTHESIA SUICIDAL IDEATION (2014) VISION DISORDER DEPRESSION OSTEOARTHRITIS SHORTNESS OF BREATH STROKE FRACTURES ACNE MEASLES HERPES ENDOMETRIOSIS HISTORY OF URINARY INCONTINENCE ONYCHOMYCOSIS HYPERTENSION ATRIAL FIBRILLATION CONGESTIVE HEART FAILURE ADDITIONAL INFORMATION DOES PATIENT HAVE A HISTORY OF CANCER? YES? COMPLETE ALL QUESTIONS.: NO SURGICAL HISTORY THIS INFORMATION WAS OBTAINED FROM THE CHART, PATIENT. PATIENT HAS A SURGICAL HISTORY OF: HISTORY OF HIP FRACTURE REPAIR- REVIEW OF SYSTEMS (ROS) THIS INFORMATION WAS OBTAINED FROM THE PATIENT. COMPLAINTS AND SYMPTOMS PATIENT COM PLAINS OF: CARDIOVASCULAR (CENTRAL): DYSPNEA ON EXERTION CO-MORBID CONDITIONS: CONGESTIVE HEART FAILURE, HYPERTENSION, VENOUS INSUFFIENCY PRIOR WOUND HISTORY: DRAINAGE PATIENT DENIES COM PLAINTS OR SY M PTOM S RELATED TO: CARDIOVASCULAR (CENTRAL): CHEST PAIN CONSTITUTIONAL SYMPTOMS (GENERAL HEALTH): CHILLS, FEVER, LOSS OF APPETITE PRIOR WOUND HISTORY: BLEEDING, ERYTHEMA, MALODOR, PAIN RESPIRATORY: COUGH, SHORTNESS OF BREATH GENERAL NOTES UP TO DATE ROCIO CARRASQUILLO [id number] 1940 OBJECTIVE VITALS HEIGHT/LENGTH: 65 IN (165.1 CM), WEIGHT: 113.7 LBS (51.68 KGS), BMI: 18.9, TEMPERATURE: 98.1 ?F (36.72 ?C), PULSE: 84 BPM, RESPIRATORY RATE: 16 BREATHS/MIN, BLOOD PRESSURE: 160/102 MMHG, PULSE OXIMETRY: 97 %. PHYSICAL EXAM CONSTITUTIONAL: VITAL SIGNS REVIEWED AND NOTED. WELL DEVELOPED, WELL NOURISHED, AND IN NO ACUTE DISTRESS. ALERT AND ORIENTED X3. RESPIRATORY: EVEN RESPIRATIONS WITHOUT USE OF ACCESSORY MUSCLES. NO INTERCOASTAL RETRACTIONS NOTED. EVEN AND NON LABORED RESPIRATION. INTEGUMENTARY (HAIR, SKIN): HEMOSIDERIN. MILD LOWER EXTREMITY SWELLING. SEE WOUND ASSESSMENT. SKIN WARM AND DRY. NO RASHES. NEUROLOGICAL: SENSATION: SYMMETRIC FUNCTION BY INFORMAL OBSERVATION. PSYCHIATRIC: ORIENTATION TO TIME, PLACE AND PERSON: NORMAL AFFECT WITH NORMAL THOUGHT PATTERN. ADDITIONAL INFORMATION THE PATIENT'S POTENTIAL TO HEAL IS: FAIR. LOWER EXTREMITY ASSESSMENT EDEMA ASSESSMENT: LEFT EXTREMITY: EDEMA IS PRESENT COMPRESSION DEVICE IN USE: YES DEVICE USED CORRECTLY: YES DEVICE IN USE: COMPRESSION STOCKINGS CALF MEASUREMENT 30 CM FROM HEEL WITH LEFT MEASUREMENT OF 30 CM ANKLE MEASUREMENT 5 CM FROM MALEOLOUS WITH LEFT MEASUREMENT OF 20 CM FOOT MEASUREMENT 10 CM FROM HEEL WITH LEFT MEASUREMENT OF 22 CM RIGHT EXTREMITY: EDEMA IS PRESENT COMPRESSION DEVICE IN USE: YES DEVICE USED CORRECTLY: YES DEVICE IN USE: COMPRESSION STOCKINGS CALF MEASUREMENT 30 CM FROM HEEL WITH RIGHT MEASUREMENT OF 29 CM ANKLE MEASUREMENT 5 CM FROM MALEOLOUS WITH RIGHT MEASUREMENT OF 19.6 CM FOOT MEASUREMENT 10 CM FROM HEEL WITH RIGHT MEASUREMENT OF 21 CM VASCULAR ASSESSMENT LEFT EXTREMITY PULSES: DORSALIS PEDIS: DOPPLER RIGHT EXTREMITY PULSES: DORSALIS PEDIS: DOPPLER LEFT EXTREMITY COLORS, HAIR GROWTH, AND CONDITIONS: EXTREMITY COLOR: PIGMENTED HAIR GROWTH ON EXTREMITY: NO TEMPERATURE OF EXTREMITY: WARM CAPILARY REFILL: > 3 SECONDS ERYTHEMA: NO RIGHT EXTREMITY COLORS, HAIR GROWTH, AND CONDITIONS: EXTREMITY COLOR: PIGMENTED HAIR GROWTH ON EXTREMITY: NO TEMPERATURE OF EXTREMITY: WARM CAPILARY REFILL: > 3 SECONDS ROCIO CARRASQUILLO [id number] 1940 ERYTHEMA: NO WOUND ASSESSMENT(S) WOUND #1 LEFT, ANTERIOR LEG IS A 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 INITIAL WOUND ENCOUNTER MEASUREMENTS ARE 2.2CM LENGTH X 1.4CM WIDTH X 0.3 CM DEPTH, WITH AN AREA OF 3.08 SQ CM AND A VOLUME OF 0.924 CUBIC CM. ADIPOSE IS EXPOSED. NO TUNNELING HAS BEEN NOTED. NO SINUS TRACT HAS BEEN NOTED. NO UNDERMINING HAS BEEN NOTED. THERE IS A MODERATE AMOUNT OF SEROSANGUINEOUS DRAINAGE NOTED WHICH HAS NO ODOR. THE PATIENT REPORTS A WOUND PAIN OF LEVEL 0/10. THE WOUND MARGIN IS ATTACHED WOUND BED HAS YES, BRIGHT RED, FIRM, GRANULATION, YES SLOUGH, NO ESCHAR, NO EPITHELIALIZATION. THE PERIWOUND SKIN EXHIBITED EDEMA AND HEMOSIDEROSIS. THE TEMPERATURE OF THE PERIWOUND SKIN IS WNL. LOCAL PULSE IS DOPPLER. 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 INITIAL WOUND ENCOUNTER MEASUREMENTS ARE 1.4CM LENGTH X 2CM WIDTH X 0.1 CM DEPTH, WITH AN AREA OF 2.8 SQ CM AND A VOLUME OF 0.28 CUBIC CM. ADIPOSE IS EXPOSED. NO TUNNELING HAS BEEN NOTED. NO SINUS TRACT HAS BEEN NOTED. NO UNDERMINING HAS BEEN NOTED. THERE IS A MODERATE AMOUNT OF SEROSANGUINEOUS DRAINAGE NOTED WHICH HAS NO ODOR. THE PATIENT REPORTS A WOUND PAIN OF LEVEL 0/10. THE WOUND MARGIN IS ATTACHED WOUND BED HAS YES, BRIGHT RED, FIRM, GRANULATION, YES SLOUGH, NO ESCHAR, NO EPITHELIALIZATION. THE PERIWOUND SKIN EXHIBITED EDEMA AND HEMOSIDEROSIS. THE TEMPERATURE OF THE PERIWOUND SKIN IS WNL. LOCAL PULSE IS DOPPLER. ADDITIONAL INFORMATION OTHER DEVITALIZED TISSUE PRESENT: BIOFILM ASSESSMENT ACTIVE PROBLEMS ICD-10 (ENCOUNTER DIAGNOSIS) L97.212 - NON-PRESSURE CHRONIC ULCER OF RIGHT CALF WITH FAT LAYER EXPOSED (ENCOUNTER DIAGNOSIS) L97.822 - NON-PRESSURE CHRONIC ULCER OF OTHER PART OF LEFT LOWER LEG WITH FAT LAYER EXPOSED (ENCOUNTER DIAGNOSIS) I87.2 - VENOUS INSUFFICIENCY (CHRONIC) (PERIPHERAL) GENERAL NOTES ULCER POSTERIOR RIGHT CALF ULCER LATERAL LEFT LOWER EXTREMITY THE FOLLOWING FACTORS HAVE BEEN IDENTIFIED THAT MAY AFFECT WOUND HEALING: DEVITALIZED TISSUE BIOFILM EDEMA VENOUS INSUFFICIENCY POSSIBLE PAD GOALS: REMOVE DEVITALIZED TISSUE REMOVE AND PREVENT BIOFILM REDUCE SWELLING ASSESS ARTERIAL CIRCULATION WOUND CLOSURE PREVENT RECURRENCE ROCIO CARRASQUILLO [id number] 1940 PLAN: DEBRIDEMENT, WOUND CULTURE OBTAINED FROM LEFT LEG. START DRESSING CHANGES WITH HYDROFERA BLUE WITH TUBIGRIP FOR COMPRESSION. ORDER ARTERIAL DOPPLER TO ASSESS ARTERIAL CIRCULATION. START PROTEIN SUPPLEMENTS, VITAMIN-C, AND ZINC. KEEP LEGS ELEVATED. FOLLOW UP IN 1 WEEK FOR A RECHECK. PROCEDURES WOUND #1 WOUND #1 (VENOUS ULCER) IS LOCATED ON THE LEFT, ANTERIOR LEG. A SKIN/SUBCUTANEOUS TISSUE LEVEL SURGICAL DEBRIDEMENT WITH A TOTAL AREA DEBRIDED OF 3.08 SQ CM. WAS PERFORMED BY NICOLE GALICIA MD. SUBCUTANEOUS WAS REMOVED ALONG WITH DEVITALIZED TISSUE: BIOFILM, EXUDATE AND SLOUGH. THE FOLLOWING INSTRUMENT(S) WERE USED: CURETTE. PAIN CONTROL WAS ACHIEVED USING EMLA LIDOCAINE/PRILOCAINE 2.5%/2.5%. A TIME OUT WAS CONDUCTED PRIOR TO THE START OF THE PROCEDURE. A MINIMAL AMOUNT OF BLEEDING WAS CONTROLLED WITH PRESSURE. THE PROCEDURE WAS TOLERATED WELL WITH A PAIN LEVEL OF 0 THROUGHOUT AND A PAIN LEVEL OF 0 FOLLOWING THE PROCEDURE. POST DEBRIDEMENT MEASUREMENTS: 2.2CM LENGTH X 1.4CM WIDTH X 0.4CM DEPTH; WITH AN AREA OF 3.08 SQ CM AND A VOLUME OF 1.232 CUBIC CM. ADDITIONAL INFORMATION MUSCLE FASCIA OR BONE REMOVED AND SENT TO PATHOLOGY?: NO WOUND #2 WOUND #2 (VENOUS ULCER) IS LOCATED ON THE RIGHT, POSTERIOR LEG. A SKIN/SUBCUTANEOUS TISSUE LEVEL SURGICAL DEBRIDEMENT WITH A TOTAL AREA DEBRIDED OF 2.8 SQ CM. WAS PERFORMED BY NICOLE GALICIA MD. SUBCUTANEOUS WAS REMOVED ALONG WITH DEVITALIZED TISSUE: BIOFILM, EXUDATE AND SLOUGH. THE FOLLOWING INSTRUMENT(S) WERE USED: CURETTE. PAIN CONTROL WAS ACHIEVED USING EMLA LIDOCAINE/PRILOCAINE 2.5%/2.5%. A TIME OUT WAS CONDUCTED PRIOR TO THE START OF THE PROCEDURE. A MINIMAL AMOUNT OF BLEEDING WAS CONTROLLED WITH PRESSURE. THE PROCEDURE WAS TOLERATED WELL WITH A PAIN LEVEL OF 0 THROUGHOUT AND A PAIN LEVEL OF 0 FOLLOWING THE PROCEDURE. POST DEBRIDEMENT MEASUREMENTS: 1.4CM LENGTH X 2CM WIDTH X 0.2CM DEPTH; WITH AN AREA OF 2.8 SQ CM AND A VOLUME OF 0.56 CUBIC CM. ADDITIONAL INFORMATION MUSCLE FASCIA OR BONE REMOVED AND SENT TO PATHOLOGY?: NO PLAN WOUND ORDERS: WOUND #1 LEFT, ANTERIOR LEG CLEANSER CLEANSE WOUND WITH NORMAL SALINE APPLY HYPOCHLOROUS ACID (VASHE OR SIMILAR) SOAKED 4X4 GAUZE TO WOUND BED FOR 5- 10 MINUTES AFTER PROVIDER HAS COMPLETED WOUND EXAM. REMOVE GAUZE AND DRESS WOUND ACCORDING TO DRESSING ORDERS. DRESSING ORDERS APPLY DRESSING(S) AND SECURE WITH: - HYDROFERA BLUE READY TRANSFER, BORDERED FOAM (MAY USE HYDROFERA BLUE BORDERED AT HOME) WOUND #2 RIGHT, POSTERIOR LEG CLEANSER CLEANSE WOUND WITH NORMAL SALINE APPLY HYPOCHLOROUS ACID (VASHE OR SIMILAR) SOAKED 4X4 GAUZE TO WOUND BED FOR 5- 10 MINUTES AFTER PROVIDER HAS COMPLETED WOUND EXAM. REMOVE GAUZE AND DRESS WOUND ACCORDING TO DRESSING ORDERS. DRESSING ORDERS APPLY DRESSING(S) AND SECURE WITH: - HYDROFERA BLUE READY TRANSFER, BORDERED FOAM (MAY USE HYDROFERA BLUE BORDERED AT HOME) ROCIO CARRASQUILLO [id number] 1940 ADDITIONAL ORDERS: HAND HYGIENE HAND HYGIENE - WASH HANDS BEFORE AND AFTER WOUND CARE. CALL THE WOUND CENTER AT [phone] IF YOU HAVE SIGNS OR SYMPTOMS OF INFECTION, FEVER CHILLS OR SHAKES, INCREASED DRAINAGE, INCREASED ODOR OR UNUSUAL REDNESS. AFTER WOUND CENTER HOURS PLEASE NOTIFY YOUR PCP OR GO TO THE EMERGENCY ROOM. PROCEDURE / ANESTHETIC 5% TOPICAL LIDOCAINE TO WOUND BED PRIOR TO PROCEDURE, IN CLINIC ONLY. DRESSING CHANGE FREQUENCY CHANGE DRESSING 3 TIMES PER WEEK. COMPRESSION/EDEMA CONTROL APPLY SINGLE LAYER COMPRESSION TO THE AFFECTED LEG(S). TUBULAR COMPRESSION DRESSING: APPLY TUBULAR DRESSING FROM MID-FOOT TO KNEE MAKING SURE TO COVER THE HEEL. APPLY IN THE MORNING. REMOVE AT BEDTIME AND ELEVATE LEGS OR LIE DOWN. - MEDIGRIP D TO BILATERAL LEGS DIETARY TAKE VITAMIN C 1000MG BY MOUTH DAILY. TAKE ZINC 25MG BY MOUTH DAILY. INCREASE THE PROTEIN IN YOUR DIET. FOLLOW-UP APPOINTMENTS RETURN APPOINTMENT 1 WEEK SCRIBING ATTESTATION I ATTEST, THE NURSE, THAT I SCRIBED THESE ORDERS FOR THE WOUND CARE PROVIDER. PROVIDER REVIEW AND ATTESTATION: REVIEWED AND EVALUATED LABS. REVIEWED HOSPITAL RECORDS. DISCUSSED THE PLAN OF CARE @ BEDSIDE WITH - THE PATIENT I AGREE AND ATTEST TO THE ABOVE INFORMATION PROVIDED FROM OTHER LICENSED PROFESSIONALS. ANCILLARY SERVICES: CARDIOVASCULAR: ANKLE BRACHIAL INDEX (LITO) LABORATORY: CULTURE WOUND CARDIOVASCULAR: ARTERIAL DOPPLER STUDIES - PLEASE CALL AND SCHEDULE [phone] PLAN OF CARE: 01. ENSURE/ESTABLISH OPTIMAL BLOOD FLOW : - COMPLETE LOWER EXTREMITY ASSESSMENT STATUS: INITIATED DATE: 05/14/2024 - PERFORM NON-INVASIVE VASCULAR TESTING (I.E. LITO) AND DOCUMENT FINDINGS. CONSIDER REPEATING WHEN WOUND HEALING <40% AFTER 30 DAYS OF WOUND CARE. STATUS: INITIATED DATE: 05/14/2024 02. ASSESS FOR/TREAT INFECTION : - EVALUATE FOR SIGNS AND SYMPTOMS OF INFECTION AND DOCUMENT FINDINGS. STATUS: INITIATED DATE: 05/14/2024 - OBTAIN CULTURE AND SENSITIVITY (CANDS) OR TISSUE CULTURE WHEN INFECTION IS SUSPECTED. (NOTE:) CONSIDER REPEATING WHEN WOUND HEALING <40% AFTER 30 DAYS OF WOUND CARE. STATUS: INITIATED DATE: 05/14/2024 03. DEBRIDE WEEKLY OR MORE OFTEN PRN : - EVALUATE PATIENT IN CENTER WEEKLY TO ASSESS WOUND BED AND MARGINS FOR NEED FOR DEBRIDEMENT. STATUS: INITIATED DATE: 05/14/2024 04. OPTIMIZE GLUCOSE CONTROL AND NUTRITION : - REVIEWED, NOT APPLICABLE 05. OFFLOADING PLAN : ROCIO CARRASQUILLO [id number] 1940 - REVIEWED, NOT APPLICABLE 06. OPTIMIZE HOST FACTORS: - ASSESS LIFESTYLE FACTORS SUCH SMOKING, ALCOHOL/DRUG ABUSE, EATING HABITS/MALNUTRITION AND ACTIVITY LEVEL. STATUS: INITIATED DATE: 05/14/2024 07. DRESSING SELECTION : - EVALUATE FOR DRESSING-RELATED FACTORS, SUCH AVAILABILITY, WEAR TIME, ADAPTABILITY AND USE TO BETTER OPTIMIZE WOUND HEALING AND PATIENT COMPLIANCE. STATUS: INITIATED DATE: 05/14/2024 08. ADVANCED MODALITIES : - SET TREATMENT GOALS ACCORDING TO PATIENT AND/OR CAREGIVER?S ABILITY/ COMPLIANCE. STATUS: INITIATED DATE: 05/14/2024 09. FALL PREVENTION : - COMPLETE FALL ASSESSMENT. STATUS: INITIATED DATE: 05/14/2024 10. PAIN MANAGEMENT : - COMPLETE PAIN ASSESSMENT STATUS: INITIATED DATE: 05/14/2024 11. MEASURABLE GOALS FOR WOUND HEALING AND/OR HYPERBARIC OXYGEN THERAPY : - WOUND CLOSURE STATUS: INITIATED DATE: 05/14/2024 12. DURATION/FREQUENCY OF WOUND CARE VISITS : - 1X WEEKLY FOR 30 DAYS STATUS: INITIATED DATE: 05/14/2024 ELECTRONIC SIGNATURE(S) SIGNED BY: DATE: NICOLE GALICIA MD 05/15/2024 16:19:23 (PT) ENTERED BY: NICOLE GALICIA MD ON 05/14/2024 16:06:53 (PT) ROCIO CARRASQUILLO [id number] 1940
== END ==
PROVIDERS: PCP Nurse Practitioner Family; Referring Provider Nurse Practitioner Family; Visit Provider Surgery
DX: L97.822 Non-pressure chronic ulcer of other part of left lower leg with fat layer exposed (principal); I87.2 Venous insufficiency (chronic) (peripheral); L97.222 Non-pressure chronic ulcer of left calf with fat layer exposed; L98.8 Other specified disorders of the skin and subcutaneous tissue; R60.0 Localized edema
CPT/HCPCS: 11042; 87070; 87075; 87205; 99203; 99213

== ENCOUNTER → 2024-05-24 10:50 | Outpatient (CLI) | payer MEDICARE, MEDICAID, SELFPAY ==
--- NOTE | 2024-05-24 | OV.WND_ITS ---
PROGRESS NOTE DETAILS PATIENT NAME: ROCIO CARRASQUILLO PATIENT NUMBER: [id number] CLINICIAN: BRENDA MCKEON R.N. PATIENT DATE OF : 1940 PHYSICIAN / COPY WORKER: CLARE WALTERS PA-C PATIENT SUBJECTIVE CHIEF COMPLAINT THIS INFORMATION WAS OBTAINED FROM THE PATIENT. WOUNDS. GENERAL NOTES VENOUS ULCERS OF BLE. ALLERGIES HORSE/EQUINE CONTAINING PRODUCTS, RABIES VACCINE,PURIFIED CHICK-EMBRYO CELL (PCEC) HPI THIS INFORMATION WAS OBTAINED FROM THE PATIENT. LOCATION: BLE DURATION: 02/23/24 CONTEXT: VENOUS THE PATIENT IS AN 83 YEAR OLD FEMALE WITH HISTORY OF CVA, CHF, HYPERTENSION, AND ATRIAL FIBRILLATION WHO WAS REFERRED BY HEATHER YBARRA NP FOR EVALUATION OF ULCERS ON BOTH LOWER EXTREMITIES. THE PATIENT DENIES HAVING ANY PAIN BUT SHE HAS HAD SOME DRAINAGE. SHE HAS BEEN TREATING THE ULCERS WITH HYDROFERA BLUE AND TUBULAR COMPRESSION. SHE RECENTLY COMPLETED A COURSE OF DOXYCYCLINE. CULTURE 05/14/24 SHOWED NO GROWTH. THE PATIENT FEELS THAT THE ULCERS ARE STARTING TO GET BETTER. SHE HAS NOT NOTED ANY ERYTHEMA NOR HAS HE HAD ANY FEVER OR CHILLS. THE PATIENT REPORTS A GOOD APPETITE AND DENIES HAVING ANY OTHER RECENT CHANGES IN HER OVERALL HEALTH. SHE HAS HAD SOME INTERMITTENT SWELLING OF HER LOWER EXTREMITIES AND IS ON DIURETIC THERAPY. THE PATIENT HAS NEVER HAD ANY SIMILAR PROBLEMS IN THE PAST AND HAS NO PRIOR HISTORY OF DVT OR VEIN DISORDERS. THE PATIENT IS ON CHRONIC ANTICOAGULATION. ABIS INDICATE BILATERAL PAD. SHE HAS ARTERIAL US SCHEDULED FOR 05/31/24. HOSPITAL RECORDS WERE REVIEWED. THE PATIENT IS AN EX CIGARETTE SMOKER. ON TODAY'S VISIT, THE LEFT LEG WOUND IS 25% SMALLER AND RIGHT LEG WOUND IS 44% SMALLER AND THERE IS NEW GRANULATION TISSUE. FAMILY REPORTS SHE IS ON WAIT LIST FOR [facility] ASSISTED LIVING AND CANNOT ENTER FACILITY UNTIL HER WOUNDS ARE HEALED. LABS: 05/14/24: CULTURE NO GROWTH 05/10/24: WBC 7.4, HEMOGLOBIN 14.6, HCT 44.4, ELECTROLYTES UNREMARKABLE, BUN 35, GFR GREATER THAN 60, LFTS NORMAL, ALK PHOS 130 MEDICAL HISTORY THIS INFORMATION WAS OBTAINED FROM THE CHART, PATIENT. PATIENT HAS A MEDICAL HISTORY OF: ROCIO BARLOW [id number] 1940 SUICIDAL IDEATION (2014) VISION DISORDER DEPRESSION OSTEOARTHRITIS SHORTNESS OF BREATH STROKE FRACTURES ACNE MEASLES HERPES ENDOMETRIOSIS HISTORY OF URINARY INCONTINENCE ONYCHOMYCOSIS HYPERTENSION ATRIAL FIBRILLATION CONGESTIVE HEART FAILURE ADDITIONAL INFORMATION DOES PATIENT HAVE A HISTORY OF CANCER? YES? COMPLETE ALL QUESTIONS.: NO SURGICAL HISTORY THIS INFORMATION WAS OBTAINED FROM THE CHART, PATIENT. PATIENT HAS A SURGICAL HISTORY OF: HISTORY OF HIP FRACTURE REPAIR- OBJECTIVE VITALS HEIGHT/LENGTH: 65 IN (165.1 CM), WEIGHT: 113.7 LBS (51.68 KGS), BMI: 18.9, TEMPERATURE: 98.7 ?F (37.06 ?C), PULSE: 88 BPM, RESPIRATORY RATE: 16 BREATHS/MIN, BLOOD PRESSURE: 164/104 MMHG, PULSE OXIMETRY: 97 %. GENERAL NOTES PT DENIES HEADACHE, CHEST PAIN, SHORTNESS OF BREATH AND VISION CHANGES. STATED THAT SHE TOOK BP MEDS THIS MORNING. PT'S FRIEND SAID PT IS VERY ANXIOUS WHEN LEAVING HOME AND GOING TO MD APPOINTMENTS. PHYSICAL EXAM CONSTITUTIONAL: GENERALIZED WEAKNESS. IN NO APPARENT DISTRESS. GOOD ATTENTION TO HYGIENE AND BODY HABITS. ALERT AND ORIENTED X 3. WELL NOURISHED. VITAL SIGNS REVIEWED AND NOTED. HYPERTENSIVE. PULSE RATE AND RHYTHM REGULAR. AFEBRILE. WEIGHT WNL. WELL DEVELOPED, WELL NOURISHED, AND IN NO ACUTE DISTRESS. ALERT AND ORIENTED X3. AMBULATES AND IS ABLE TO CHANGE POSITION WITHOUT ASSISTANCE. ALERT AND ORIENTED X 3. RESPIRATORY: EVEN RESPIRATIONS WITHOUT USE OF ACCESSORY MUSCLES. NO INTERCOASTAL RETRACTIONS NOTED. EVEN AND NON LABORED RESPIRATION. CARDIOVASCULAR: SEE LOWER EXTREMITY ASSESSMENT WHEN APPLICABLE. THERE IS NO PERIPHERAL EDEMA, CYANOSIS OR PALLOR. EXTREMITIES ARE WARM AND WELL PERFUSED. CAPILLARY REFILL IS LESS THAN 2 SECONDS. INTEGUMENTARY (HAIR, SKIN): SEE WOUND DESCRIPTION. NEUROLOGICAL: DECREASED LOWER EXTREMITY SENSATION. ROCIO CARRASQUILLO [id number] 1940 PSYCHIATRIC: ORIENTATION TO TIME, PLACE AND PERSON: NORMAL AFFECT WITH NORMAL THOUGHT PATTERN. MOOD AND AFFECT: NORMAL AFFECT WITH NORMAL THOUGHT PATTERN. ADDITIONAL INFORMATION THE PATIENT'S POTENTIAL TO HEAL IS: FAIR. 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 INITIAL WOUND ENCOUNTER MEASUREMENTS ARE 2.1CM LENGTH X 1.1CM WIDTH X 0.3 CM DEPTH, WITH AN AREA OF 2.31 SQ CM AND A VOLUME OF 0.693 CUBIC CM.INITIAL WOUND ENCOUNTER PREVIOUS MEASUREMENTS FROM 05/14/2024 ARE 2.2CM LENGTH X 1.4CM WIDTH X 0.3CM DEPTH, WITH AN AREA OF 3.08 SQ CM AND A VOLUME OF 0.924 CUBIC CM. ADIPOSE IS EXPOSED. HYPERGRANULATION WAS NOTED. NO TUNNELING HAS BEEN NOTED. NO SINUS TRACT HAS BEEN NOTED. NO UNDERMINING HAS BEEN NOTED. THERE IS A MODERATE AMOUNT OF SEROSANGUINEOUS DRAINAGE NOTED WHICH HAS NO ODOR. THE PATIENT REPORTS A WOUND PAIN OF LEVEL 0/10. THE WOUND MARGIN IS ATTACHED WOUND BED HAS YES, BRIGHT RED, PINK, FIRM, GRANULATION, YES SLOUGH, NO ESCHAR, NO EPITHELIALIZATION. THE PERIWOUND SKIN EXHIBITED EDEMA AND HEMOSIDEROSIS. THE PERIWOUND SKIN DID NOT EXHIBIT MACERATION. THE PERIWOUND SKIN WAS NOT DRY/SCALY AND MOIST. THE TEMPERATURE OF THE PERIWOUND SKIN IS WNL. PERIWOUND SKIN DOES NOT EXHIBIT SIGNS OR SYMPTOMS OF INFECTION. LOCAL PULSE IS DOPPLER. 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 INITIAL WOUND ENCOUNTER MEASUREMENTS ARE 1.1CM LENGTH X 1.5CM WIDTH X 0.1 CM DEPTH, WITH AN AREA OF 1.65 SQ CM AND A VOLUME OF 0.165 CUBIC CM.INITIAL WOUND ENCOUNTER PREVIOUS MEASUREMENTS FROM 05/14/2024 ARE 1.4CM LENGTH X 2CM WIDTH X 0.1CM DEPTH, WITH AN AREA OF 2.8 SQ CM AND A VOLUME OF 0.28 CUBIC CM. ADIPOSE IS EXPOSED. NO TUNNELING HAS BEEN NOTED. NO SINUS TRACT HAS BEEN NOTED. NO UNDERMINING HAS BEEN NOTED. THERE IS A MODERATE AMOUNT OF SEROSANGUINEOUS DRAINAGE NOTED WHICH HAS NO ODOR. THE PATIENT REPORTS A WOUND PAIN OF LEVEL 0/10. THE WOUND MARGIN IS ATTACHED WOUND BED HAS YES, BRIGHT RED, PINK, FIRM, GRANULATION, YES SLOUGH, NO ESCHAR, NO EPITHELIALIZATION. THE PERIWOUND SKIN EXHIBITED EDEMA AND HEMOSIDEROSIS. THE PERIWOUND SKIN DID NOT EXHIBIT MACERATION. THE PERIWOUND SKIN WAS NOT DRY/SCALY AND MOIST. THE TEMPERATURE OF THE PERIWOUND SKIN IS WNL. PERIWOUND SKIN DOES NOT EXHIBIT SIGNS OR SYMPTOMS OF INFECTION. LOCAL PULSE IS DOPPLER. 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 A SKIN/SUBCUTANEOUS TISSUE LEVEL SURGICAL ROCIO CARRASQUILLO [id number] 1940 DEBRIDEMENT WITH A TOTAL AREA DEBRIDED OF 2.31 SQ CM. WAS PERFORMED BY CLARE WALTERS PA-C. SUBCUTANEOUS WAS REMOVED ALONG WITH DEVITALIZED TISSUE: BIOFILM AND SLOUGH. THE FOLLOWING INSTRUMENT(S) WERE USED: CURETTE. PAIN CONTROL WAS ACHIEVED USING EMLA LIDOCAINE/PRILOCAINE 2.5%/2.5%. A TIME OUT WAS CONDUCTED PRIOR TO THE START OF THE PROCEDURE. A MODERATE AMOUNT OF BLEEDING WAS CONTROLLED WITH SILVER NITRATE. THE PROCEDURE WAS TOLERATED WELL WITH A PAIN LEVEL OF 0 THROUGHOUT AND A PAIN LEVEL OF 0 FOLLOWING THE PROCEDURE. POST DEBRIDEMENT MEASUREMENTS: 2.1CM LENGTH X 1.1CM WIDTH X 0.4CM DEPTH; WITH AN AREA OF 2.31 SQ CM AND A VOLUME OF 0.924 CUBIC CM. ADDITIONAL INFORMATION MUSCLE FASCIA OR BONE REMOVED AND SENT TO PATHOLOGY?: NO WOUND #2 WOUND #2 (VENOUS ULCER) IS LOCATED ON THE RIGHT, POSTERIOR LEG. A SKIN/SUBCUTANEOUS TISSUE LEVEL SURGICAL DEBRIDEMENT WITH A TOTAL AREA DEBRIDED OF 1.65 SQ CM. WAS PERFORMED BY CLARE WALTERS PA-C. SUBCUTANEOUS WAS REMOVED ALONG WITH DEVITALIZED TISSUE: BIOFILM AND SLOUGH. THE FOLLOWING INSTRUMENT(S) WERE USED: CURETTE. PAIN CONTROL WAS ACHIEVED USING EMLA LIDOCAINE/PRILOCAINE 2.5%/2.5%. A TIME OUT WAS CONDUCTED PRIOR TO THE START OF THE PROCEDURE. A MODERATE AMOUNT OF BLEEDING WAS CONTROLLED WITH SILVER NITRATE. THE PROCEDURE WAS TOLERATED WELL WITH A PAIN LEVEL OF 0 THROUGHOUT AND A PAIN LEVEL OF 0 FOLLOWING THE PROCEDURE. POST DEBRIDEMENT MEASUREMENTS: 1.1CM LENGTH X 1.5CM WIDTH X 0.2CM DEPTH; WITH AN AREA OF 1.65 SQ CM AND A VOLUME OF 0.33 CUBIC CM. ADDITIONAL INFORMATION MUSCLE FASCIA OR BONE REMOVED AND SENT TO PATHOLOGY?: NO PLAN WOUND ORDERS: WOUND #1 LEFT, ANTERIOR LEG CLEANSER CLEANSE WOUND WITH NORMAL SALINE APPLY HYPOCHLOROUS ACID (VASHE OR SIMILAR) SOAKED 4X4 GAUZE TO WOUND BED FOR 5- 10 MINUTES AFTER PROVIDER HAS COMPLETED WOUND EXAM. REMOVE GAUZE AND DRESS WOUND ACCORDING TO DRESSING ORDERS. DRESSING ORDERS APPLY DRESSING(S) AND SECURE WITH: - HYDROFERA BLUE READY TRANSFER, BORDERED FOAM (MAY USE HYDROFERA BLUE BORDERED AT HOME) DRESSING CHANGE FREQUENCY CHANGE DRESSING 3 TIMES PER WEEK. WOUND #2 RIGHT, POSTERIOR LEG CLEANSER CLEANSE WOUND WITH NORMAL SALINE APPLY HYPOCHLOROUS ACID (VASHE OR SIMILAR) SOAKED 4X4 GAUZE TO WOUND BED FOR 5- 10 MINUTES AFTER PROVIDER HAS COMPLETED WOUND EXAM. REMOVE GAUZE AND DRESS WOUND ACCORDING TO DRESSING ORDERS. DRESSING ORDERS APPLY DRESSING(S) AND SECURE WITH: - HYDROFERA BLUE READY TRANSFER, BORDERED FOAM (MAY USE HYDROFERA BLUE BORDERED AT HOME) DRESSING CHANGE FREQUENCY CHANGE DRESSING 3 TIMES PER WEEK. ADDITIONAL ORDERS: HAND HYGIENE HAND HYGIENE - WASH HANDS BEFORE AND AFTER WOUND CARE. CALL THE WOUND CENTER AT [phone] IF YOU HAVE SIGNS OR SYMPTOMS OF INFECTION, FEVER CHILLS OR SHAKES, INCREASED DRAINAGE, INCREASED ODOR OR UNUSUAL REDNESS. AFTER WOUND CENTER HOURS PLEASE NOTIFY YOUR PCP OR GO TO THE EMERGENCY ROOM. PROCEDURE / ANESTHETIC 5% TOPICAL LIDOCAINE TO WOUND BED PRIOR TO PROCEDURE, IN CLINIC ONLY. COMPRESSION/EDEMA CONTROL ROCIO CARRASQUILLO [id number] 1940 ELEVATE LEG(S) ABOVE THE LEVEL OF THE HEART MUCH POSSIBLE. AVOID STANDING IN ONE POSITION FOR MORE THAN 10 MINUTES. AVOID SITTING WITH LEGS DOWN. DO NOT CROSS LEGS WHEN SITTING. APPLY SINGLE LAYER COMPRESSION TO THE AFFECTED LEG(S). TUBULAR COMPRESSION DRESSING: APPLY TUBULAR DRESSING FROM MID-FOOT TO KNEE MAKING SURE TO COVER THE HEEL. APPLY IN THE MORNING. REMOVE AT BEDTIME AND ELEVATE LEGS OR LIE DOWN. - MEDIGRIP E TO BILATERAL LEGS DIETARY TAKE VITAMIN C 1000MG BY MOUTH DAILY. TAKE ZINC 25MG BY MOUTH DAILY. INCREASE THE PROTEIN IN YOUR DIET. - [facility] PLEASE PROVIDE PATIENT WITH ENSURE PROTEIN DRINKS OR EQUIVALENT. AIM FOR 30GRAMS BETWEEN MEALS. FOLLOW-UP APPOINTMENTS RETURN APPOINTMENT 1 WEEK SCRIBING ATTESTATION I ATTEST, THE NURSE, THAT I SCRIBED THESE ORDERS FOR THE WOUND CARE PROVIDER. PROVIDER REVIEW AND ATTESTATION: REVIEWED AND EVALUATED LABS. REVIEWED HOSPITAL RECORDS. DISCUSSED THE PLAN OF CARE @ BEDSIDE WITH - THE PATIENT I AGREE AND ATTEST TO THE ABOVE INFORMATION PROVIDED FROM OTHER LICENSED PROFESSIONALS. PLAN OF CARE: 01. ENSURE/ESTABLISH OPTIMAL BLOOD FLOW : - COMPLETE LOWER EXTREMITY ASSESSMENT STATUS: CONTINUED DATE: 05/24/2024 - PERFORM NON-INVASIVE VASCULAR TESTING (I.E. LITO) AND DOCUMENT FINDINGS. CONSIDER REPEATING WHEN WOUND HEALING <40% AFTER 30 DAYS OF WOUND CARE. STATUS: CONTINUED DATE: 05/24/2024 02. ASSESS FOR/TREAT INFECTION : - EVALUATE FOR SIGNS AND SYMPTOMS OF INFECTION AND DOCUMENT FINDINGS. STATUS: CONTINUED DATE: 05/24/2024 - OBTAIN CULTURE AND SENSITIVITY (CANDS) OR TISSUE CULTURE WHEN INFECTION IS SUSPECTED. (NOTE:) CONSIDER REPEATING WHEN WOUND HEALING <40% AFTER 30 DAYS OF WOUND CARE. STATUS: CONTINUED DATE: 05/24/2024 03. DEBRIDE WEEKLY OR MORE OFTEN PRN : - EVALUATE PATIENT IN CENTER WEEKLY TO ASSESS WOUND BED AND MARGINS FOR NEED FOR DEBRIDEMENT. STATUS: CONTINUED DATE: 05/24/2024 04. OPTIMIZE GLUCOSE CONTROL AND NUTRITION : - REVIEWED, NOT APPLICABLE 05. OFFLOADING PLAN : - REVIEWED, NOT APPLICABLE 06. OPTIMIZE HOST FACTORS: - ASSESS LIFESTYLE FACTORS SUCH SMOKING, ALCOHOL/DRUG ABUSE, EATING HABITS/MALNUTRITION AND ACTIVITY LEVEL. STATUS: CONTINUED DATE: 05/24/2024 07. DRESSING SELECTION : - EVALUATE FOR DRESSING-RELATED FACTORS, SUCH AVAILABILITY, WEAR TIME, ADAPTABILITY AND USE TO BETTER OPTIMIZE WOUND HEALING AND PATIENT COMPLIANCE. STATUS: CONTINUED DATE: 05/24/2024 08. ADVANCED MODALITIES : - SET TREATMENT GOALS ACCORDING TO PATIENT AND/OR CAREGIVER?S ABILITY/ COMPLIANCE. STATUS: CONTINUED DATE: 05/24/2024 09. FALL PREVENTION : ROCIO CARRASQUILLO [id number] 1940 - COMPLETE FALL ASSESSMENT. STATUS: CONTINUED DATE: 05/24/2024 10. PAIN MANAGEMENT : - COMPLETE PAIN ASSESSMENT STATUS: CONTINUED DATE: 05/24/2024 11. MEASURABLE GOALS FOR WOUND HEALING AND/OR HYPERBARIC OXYGEN THERAPY : - WOUND CLOSURE STATUS: CONTINUED DATE: 05/24/2024 12. DURATION/FREQUENCY OF WOUND CARE VISITS : - 1X WEEKLY FOR 30 DAYS STATUS: CONTINUED DATE: 05/24/2024 PLAN CONTINUE DRESSING WITH HYDROFERA BLUE AND BORDERED FOAM, VASHE WITH DRESSING CHANGES CONTINUE TUBULAR COMPRESSION RECHECK 1 WEEK ELECTRONIC SIGNATURE(S) SIGNED BY: DATE: CLARE WALTERS PA-C 05/27/2024 08:12:49 (PT) ENTERED BY: CLARE WALTERS PA-C ON 05/27/2024 08:12:26 (PT) ROCIO CARRASQUILLO [id number] 1940
== END ==
PROVIDERS: PCP Nurse Practitioner Family; Referring Provider Nurse Practitioner Family; Visit Provider Physician Assistant
DX: I87.2 Venous insufficiency (chronic) (peripheral) (principal); L97.822 Non-pressure chronic ulcer of other part of left lower leg with fat layer exposed; L97.812 Non-pressure chronic ulcer of other part of right lower leg with fat layer exposed; L98.8 Other specified disorders of the skin and subcutaneous tissue; R60.0 Localized edema
CPT/HCPCS: 11042; 99213

== ENCOUNTER → 2024-05-24 11:42 | Outpatient (CLI) | payer MEDICARE, MEDICAID, SELFPAY ==
[2024-05-24 12:40] LABS: INR 2.6 (0.9-1.3); Prothrombin Time 28.9 SECONDS (9.4-12.5)
== END ==
PROVIDERS: PCP Nurse Practitioner Family; Referring Provider Nurse Practitioner Family; Visit Provider Nurse Practitioner Family
DX: I48.11 Longstanding persistent atrial fibrillation (principal); Z79.01 Long term (current) use of anticoagulants; Z79.899 Other long term (current) drug therapy
CPT/HCPCS: 36415; 85610

== ENCOUNTER → 2024-05-29 15:36 | Outpatient (CLI) | payer MEDICARE, MEDICAID, SELFPAY ==
--- NOTE | 2024-05-29 | OV.WND_ITS ---
PROGRESS NOTE DETAILS PATIENT NAME: ROCIO CARRASQUILLO PATIENT NUMBER: [id number] CLINICIAN: JULIAN ERWIN PATIENT DATE OF : 1940 PHYSICIAN / ASSISTANT WOMEN'S BASKETBALL COACH: NICOLE GALICIA PATIENT SUBJECTIVE CHIEF COMPLAINT THIS INFORMATION WAS OBTAINED FROM THE PATIENT. THINK IT'S BETTER WOUNDS BILATERAL FEET ALLERGIES HORSE/EQUINE CONTAINING PRODUCTS, RABIES VACCINE,PURIFIED CHICK-EMBRYO CELL (PCEC) HPI THIS INFORMATION WAS OBTAINED FROM THE PATIENT. THE FOLLOWING HPI ELEMENTS WERE DOCUMENTED FOR THE PATIENT'S WOUND: LOCATION: BLE DURATION: 02/23/24 CONTEXT: VENOUS THE PATIENT IS AN 83 YEAR OLD FEMALE WITH HISTORY OF CVA, CHF, HYPERTENSION, AND ATRIAL FIBRILLATION WHO RETURNS TODAY FOR FOLLOW UPOF ULCERS ON BOTH LOWER EXTREMITIES. THE PATIENT IS RECEIVING DRESSING CHANGES WITH HYDROFERA BLUE WITH TUBIGRIP FOR COMPRESSION. THE PATIENT DENIES HAVING ANY PAIN BUT SHE HAS HAD SOME DRAINAGE. SHE HAS NOT NOTED ANY ERYTHEMA NOR HAS SHE HAD ANY FEVER OR CHILLS. THE PATIENT REPORTS A GOOD APPETITE AND IS TAKING PROTEIN SUPPLEMENTS. SHE DENIES HAVING ANY OTHER RECENT CHANGES IN HER OVERALL HEALTH. SHE HAS HAD SOME INTERMITTENT SWELLING OF HER LOWER EXTREMITIES AND IS ON DIURETIC THERAPY. THE PATIENT HAS NEVER HAD ANY SIMILAR PROBLEMS IN THE PAST AND HAS NO PRIOR HISTORY OF DVT OR VEIN DISORDERS. THE PATIENT IS ON CHRONIC ANTICOAGULATION. ABIS INDICATE BILATERAL PAD. HOSPITAL RECORDS WERE REVIEWED AND THERE ARE NO RECENT CULTURES OR IMAGING STUDIES AVAILABLE. THE PATIENT IS AN EX CIGARETTE SMOKER. ON EXAM TODAY THE ULCERS ARE STABLE AND THERE IS BETTER GRANULATION TISSUE, NO SIGN OF INFECTION. ARTERIAL DOPPLER IS SCHEDULED FOR LATER THIS WEEK. LABS: 05/14/24: CULTURE NO GROWTH 05/10/24: WBC 7.4, HEMOGLOBIN 14.6, HCT 44.4, ELECTROLYTES UNREMARKABLE, BUN 35, GFR GREATER THAN 60, LFTS NORMAL, ALK PHOS 130 MEDICAL HISTORY THIS INFORMATION WAS OBTAINED FROM THE CHART, PATIENT. PATIENT HAS A MEDICAL HISTORY OF: ANESTHESIA SUICIDAL IDEATION (2014) VISION DISORDER DEPRESSION OSTEOARTHRITIS ROCIO CARRASQUILLO [id number] 1940 SHORTNESS OF BREATH STROKE FRACTURES ACNE MEASLES HERPES ENDOMETRIOSIS HISTORY OF URINARY INCONTINENCE ONYCHOMYCOSIS HYPERTENSION ATRIAL FIBRILLATION CONGESTIVE HEART FAILURE ADDITIONAL INFORMATION DOES PATIENT HAVE A HISTORY OF CANCER? YES? COMPLETE ALL QUESTIONS.: NO SURGICAL HISTORY THIS INFORMATION WAS OBTAINED FROM THE CHART, PATIENT. PATIENT HAS A SURGICAL HISTORY OF: HISTORY OF HIP FRACTURE REPAIR- OBJECTIVE VITALS HEIGHT/LENGTH: 65 IN (165.1 CM), WEIGHT: 113.7 LBS (51.68 KGS), BMI: 18.9, TEMPERATURE: 97.8 ?F (36.56 ?C), PULSE: 70 BPM, RESPIRATORY RATE: 16 BREATHS/MIN, BLOOD PRESSURE: 139/83 MMHG, PULSE OXIMETRY: 97 %. PHYSICAL EXAM CONSTITUTIONAL: VITAL SIGNS REVIEWED AND NOTED. WELL DEVELOPED, WELL NOURISHED, AND IN NO ACUTE DISTRESS. ALERT AND ORIENTED X3. RESPIRATORY: EVEN RESPIRATIONS WITHOUT USE OF ACCESSORY MUSCLES. NO INTERCOASTAL RETRACTIONS NOTED. EVEN AND NON LABORED RESPIRATION. INTEGUMENTARY (HAIR, SKIN): HEMOSIDERIN . NO SWELLING OR TENDERNESS. SEE WOUND ASSESSMENT. NO RASHES. NEUROLOGICAL: SENSATION: SYMMETRIC FUNCTION BY INFORMAL OBSERVATION. PSYCHIATRIC: ORIENTATION TO TIME, PLACE AND PERSON: NORMAL AFFECT WITH NORMAL THOUGHT PATTERN. ADDITIONAL INFORMATION THE PATIENT'S POTENTIAL TO HEAL IS: FAIR. 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 INITIAL WOUND ENCOUNTER MEASUREMENTS ARE 2.3CM LENGTH X 1.3CM WIDTH X 0.2 CM DEPTH, WITH AN AREA OF 2.99 SQ CM AND A VOLUME OF 0.598 CUBIC CM.INITIAL WOUND ENCOUNTER PREVIOUS MEASUREMENTS FROM 05/24/2024 ARE 2.1CM LENGTH X 1.1CM WIDTH X 0.3CM DEPTH, WITH AN AREA OF 2.31 SQ CM AND A VOLUME OF 0.693 CUBIC CM. ADIPOSE IS EXPOSED. HYPERGRANULATION WAS NOTED. NO TUNNELING HAS BEEN NOTED. NO SINUS TRACT HAS BEEN NOTED. NO UNDERMINING HAS BEEN NOTED. THERE IS A ROCIO CARRASQUILLO [id number] 1940 MODERATE AMOUNT OF SEROSANGUINEOUS DRAINAGE NOTED WHICH HAS NO ODOR. THE PATIENT REPORTS A WOUND PAIN OF LEVEL 0/10. THE WOUND MARGIN IS ATTACHED WOUND BED HAS YES, BRIGHT RED, PINK, FIRM, GRANULATION, YES SLOUGH, NO ESCHAR, NO EPITHELIALIZATION. THE PERIWOUND SKIN EXHIBITED EDEMA AND HEMOSIDEROSIS. THE PERIWOUND SKIN DID NOT EXHIBIT MACERATION. THE PERIWOUND SKIN WAS NOT DRY/SCALY AND MOIST. THE TEMPERATURE OF THE PERIWOUND SKIN IS WNL. PERIWOUND SKIN DOES NOT EXHIBIT SIGNS OR SYMPTOMS OF INFECTION. LOCAL PULSE IS DOPPLER. 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 INITIAL WOUND ENCOUNTER MEASUREMENTS ARE 1.3CM LENGTH X 1.3CM WIDTH X 0.1 CM DEPTH, WITH AN AREA OF 1.69 SQ CM AND A VOLUME OF 0.169 CUBIC CM.INITIAL WOUND ENCOUNTER PREVIOUS MEASUREMENTS FROM 05/24/2024 ARE 1.1CM LENGTH X 1.5CM WIDTH X 0.1CM DEPTH, WITH AN AREA OF 1.65 SQ CM AND A VOLUME OF 0.165 CUBIC CM. ADIPOSE IS EXPOSED. NO TUNNELING HAS BEEN NOTED. NO SINUS TRACT HAS BEEN NOTED. NO UNDERMINING HAS BEEN NOTED. THERE IS A MODERATE AMOUNT OF SEROSANGUINEOUS DRAINAGE NOTED WHICH HAS NO ODOR. THE PATIENT REPORTS A WOUND PAIN OF LEVEL 0/10. THE WOUND MARGIN IS ATTACHED WOUND BED HAS YES, BRIGHT RED, PINK, FIRM, GRANULATION, YES SLOUGH, NO ESCHAR, NO EPITHELIALIZATION. THE PERIWOUND SKIN EXHIBITED EDEMA AND HEMOSIDEROSIS. THE PERIWOUND SKIN DID NOT EXHIBIT MACERATION. THE PERIWOUND SKIN WAS NOT DRY/SCALY AND MOIST. THE TEMPERATURE OF THE PERIWOUND SKIN IS WNL. PERIWOUND SKIN DOES NOT EXHIBIT SIGNS OR SYMPTOMS OF INFECTION. LOCAL PULSE IS DOPPLER. 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 AWAIT ROCIO CARRASQUILLO [id number] 1940 RESULTS OF ARTERIAL DOPPLER TO ASSESS ARTERIAL CIRCULATION. CONTINUE PROTEIN SUPPLEMENTS, VITAMIN-C, AND ZINC. KEEP LEGS ELEVATED. FOLLOW UP IN 1 WEEK FOR A RECHECK. PROCEDURES WOUND #1 WOUND #1 (VENOUS ULCER) IS LOCATED ON THE LEFT, ANTERIOR LEG. A SKIN/SUBCUTANEOUS TISSUE LEVEL SURGICAL DEBRIDEMENT WITH A TOTAL AREA DEBRIDED OF 2.99 SQ CM. WAS PERFORMED BY NICOLE GALICIA MD. SUBCUTANEOUS WAS REMOVED ALONG WITH DEVITALIZED TISSUE: BIOFILM, EXUDATE AND SLOUGH. THE FOLLOWING INSTRUMENT(S) WERE USED: CURETTE. PAIN CONTROL WAS ACHIEVED USING 4% LIDO. A TIME OUT WAS CONDUCTED PRIOR TO THE START OF THE PROCEDURE. A MINIMAL AMOUNT OF BLEEDING WAS CONTROLLED WITH PRESSURE. THE PROCEDURE WAS TOLERATED WELL WITH A PAIN LEVEL OF 0 THROUGHOUT AND A PAIN LEVEL OF 0 FOLLOWING THE PROCEDURE. POST DEBRIDEMENT MEASUREMENTS: 2.3CM LENGTH X 1.3CM WIDTH X 0.3CM DEPTH; WITH AN AREA OF 2.99 SQ CM AND A VOLUME OF 0.897 CUBIC CM. ADDITIONAL INFORMATION MUSCLE FASCIA OR BONE REMOVED AND SENT TO PATHOLOGY?: NO WOUND #2 WOUND #2 (VENOUS ULCER) IS LOCATED ON THE RIGHT, POSTERIOR LEG. A SKIN/SUBCUTANEOUS TISSUE LEVEL SURGICAL DEBRIDEMENT WITH A TOTAL AREA DEBRIDED OF 1.69 SQ CM. WAS PERFORMED BY NICOLE GALICIA MD. SUBCUTANEOUS WAS REMOVED ALONG WITH DEVITALIZED TISSUE: BIOFILM, EXUDATE AND SLOUGH. THE FOLLOWING INSTRUMENT(S) WERE USED: CURETTE. PAIN CONTROL WAS ACHIEVED USING EMLA LIDOCAINE/PRILOCAINE 2.5%/2.5%. A TIME OUT WAS CONDUCTED PRIOR TO THE START OF THE PROCEDURE. A MINIMAL AMOUNT OF BLEEDING WAS CONTROLLED WITH PRESSURE. THE PROCEDURE WAS TOLERATED WELL WITH A PAIN LEVEL OF 0 THROUGHOUT AND A PAIN LEVEL OF 0 FOLLOWING THE PROCEDURE. POST DEBRIDEMENT MEASUREMENTS: 1.3CM LENGTH X 1.3CM WIDTH X 0.2CM DEPTH; WITH AN AREA OF 1.69 SQ CM AND A VOLUME OF 0.338 CUBIC CM. ADDITIONAL INFORMATION MUSCLE FASCIA OR BONE REMOVED AND SENT TO PATHOLOGY?: NO PLAN WOUND ORDERS: WOUND #1 LEFT, ANTERIOR LEG CLEANSER CLEANSE WOUND WITH NORMAL SALINE APPLY HYPOCHLOROUS ACID (VASHE OR SIMILAR) SOAKED 4X4 GAUZE TO WOUND BED FOR 5- 10 MINUTES AFTER PROVIDER HAS COMPLETED WOUND EXAM. REMOVE GAUZE AND DRESS WOUND ACCORDING TO DRESSING ORDERS. DRESSING ORDERS APPLY DRESSING(S) AND SECURE WITH: - PROMOGRAN MOISTENED WITH SALINE OR DISTILLED WATER, HYDROFERA BLUE READY TRANSFER, BORDERED FOAM (MAY USE HYDROFERA BLUE BORDERED AT HOME) DRESSING CHANGE FREQUENCY CHANGE DRESSING 3 TIMES PER WEEK. WOUND #2 RIGHT, POSTERIOR LEG CLEANSER CLEANSE WOUND WITH NORMAL SALINE APPLY HYPOCHLOROUS ACID (VASHE OR SIMILAR) SOAKED 4X4 GAUZE TO WOUND BED FOR 5- 10 MINUTES AFTER PROVIDER HAS COMPLETED WOUND EXAM. REMOVE GAUZE AND DRESS WOUND ACCORDING TO DRESSING ORDERS. DRESSING ORDERS APPLY DRESSING(S) AND SECURE WITH: - PROMOGRAN MOISTENED WITH SALINE OR DISTILLED WATER, HYDROFERA BLUE READY TRANSFER, BORDERED FOAM (MAY USE HYDROFERA BLUE BORDERED AT HOME) DRESSING CHANGE FREQUENCY ROCIO CARRASQUILLO [id number] 1940 CHANGE DRESSING 3 TIMES PER WEEK. ADDITIONAL ORDERS: HAND HYGIENE HAND HYGIENE - WASH HANDS BEFORE AND AFTER WOUND CARE. CALL THE WOUND CENTER AT [phone] IF YOU HAVE SIGNS OR SYMPTOMS OF INFECTION, FEVER CHILLS OR SHAKES, INCREASED DRAINAGE, INCREASED ODOR OR UNUSUAL REDNESS. AFTER WOUND CENTER HOURS PLEASE NOTIFY YOUR PCP OR GO TO THE EMERGENCY ROOM. PROCEDURE / ANESTHETIC 5% TOPICAL LIDOCAINE TO WOUND BED PRIOR TO PROCEDURE, IN CLINIC ONLY. COMPRESSION/EDEMA CONTROL ELEVATE LEG(S) ABOVE THE LEVEL OF THE HEART MUCH POSSIBLE. AVOID STANDING IN ONE POSITION FOR MORE THAN 10 MINUTES. AVOID SITTING WITH LEGS DOWN. DO NOT CROSS LEGS WHEN SITTING. APPLY SINGLE LAYER COMPRESSION TO THE AFFECTED LEG(S). TUBULAR COMPRESSION DRESSING: APPLY TUBULAR DRESSING FROM MID-FOOT TO KNEE MAKING SURE TO COVER THE HEEL. APPLY IN THE MORNING. REMOVE AT BEDTIME AND ELEVATE LEGS OR LIE DOWN. - MEDIGRIP E TO BILATERAL LEGS DIETARY TAKE VITAMIN C 1000MG BY MOUTH DAILY. TAKE ZINC 25MG BY MOUTH DAILY. INCREASE THE PROTEIN IN YOUR DIET. - [facility] PLEASE PROVIDE PATIENT WITH ENSURE PROTEIN DRINKS OR EQUIVALENT. AIM FOR 30GRAMS BETWEEN MEALS. FOLLOW-UP APPOINTMENTS RETURN APPOINTMENT 1 WEEK SCRIBING ATTESTATION I ATTEST, THE NURSE, THAT I SCRIBED THESE ORDERS FOR THE WOUND CARE PROVIDER. PROVIDER REVIEW AND ATTESTATION: REVIEWED AND EVALUATED LABS. REVIEWED HOSPITAL RECORDS. DISCUSSED THE PLAN OF CARE @ BEDSIDE WITH - THE PATIENT I AGREE AND ATTEST TO THE ABOVE INFORMATION PROVIDED FROM OTHER LICENSED PROFESSIONALS. PLAN OF CARE: 01. ENSURE/ESTABLISH OPTIMAL BLOOD FLOW : - COMPLETE LOWER EXTREMITY ASSESSMENT STATUS: CONTINUED DATE: 05/24/2024 - PERFORM NON-INVASIVE VASCULAR TESTING (I.E. LITO) AND DOCUMENT FINDINGS. CONSIDER REPEATING WHEN WOUND HEALING <40% AFTER 30 DAYS OF WOUND CARE. STATUS: CONTINUED DATE: 05/24/2024 02. ASSESS FOR/TREAT INFECTION : - EVALUATE FOR SIGNS AND SYMPTOMS OF INFECTION AND DOCUMENT FINDINGS. STATUS: CONTINUED DATE: 05/24/2024 - OBTAIN CULTURE AND SENSITIVITY (CANDS) OR TISSUE CULTURE WHEN INFECTION IS SUSPECTED. (NOTE:) CONSIDER REPEATING WHEN WOUND HEALING <40% AFTER 30 DAYS OF WOUND CARE. STATUS: CONTINUED DATE: 05/24/2024 03. DEBRIDE WEEKLY OR MORE OFTEN PRN : - EVALUATE PATIENT IN CENTER WEEKLY TO ASSESS WOUND BED AND MARGINS FOR NEED FOR DEBRIDEMENT. STATUS: CONTINUED DATE: 05/24/2024 04. OPTIMIZE GLUCOSE CONTROL AND NUTRITION : - REVIEWED, NOT APPLICABLE 05. OFFLOADING PLAN : - REVIEWED, NOT APPLICABLE 06. OPTIMIZE HOST FACTORS: - ASSESS LIFESTYLE FACTORS SUCH SMOKING, ALCOHOL/DRUG ABUSE, EATING HABITS/MALNUTRITION AND ACTIVITY LEVEL. STATUS: CONTINUED DATE: 05/24/2024 ROCIO CARRASQUILLO [id number] 1940 07. DRESSING SELECTION : - EVALUATE FOR DRESSING-RELATED FACTORS, SUCH AVAILABILITY, WEAR TIME, ADAPTABILITY AND USE TO BETTER OPTIMIZE WOUND HEALING AND PATIENT COMPLIANCE. STATUS: CONTINUED DATE: 05/24/2024 08. ADVANCED MODALITIES : - SET TREATMENT GOALS ACCORDING TO PATIENT AND/OR CAREGIVER?S ABILITY/ COMPLIANCE. STATUS: CONTINUED DATE: 05/24/2024 09. FALL PREVENTION : - COMPLETE FALL ASSESSMENT. STATUS: CONTINUED DATE: 05/24/2024 10. PAIN MANAGEMENT : - COMPLETE PAIN ASSESSMENT STATUS: CONTINUED DATE: 05/24/2024 11. MEASURABLE GOALS FOR WOUND HEALING AND/OR HYPERBARIC OXYGEN THERAPY : - WOUND CLOSURE STATUS: CONTINUED DATE: 05/24/2024 12. DURATION/FREQUENCY OF WOUND CARE VISITS : - 1X WEEKLY FOR 30 DAYS STATUS: CONTINUED DATE: 05/24/2024 ELECTRONIC SIGNATURE(S) SIGNED BY: DATE: NICOLE GALICIA MD 05/29/2024 15:50:59 (PT) ENTERED BY: NICOLE GALICIA MD ON 05/29/2024 13:37:41 (PT) ROCIO CARRASQUILLO [id number] 1940
== END ==
PROVIDERS: PCP Nurse Practitioner Family; Referring Provider Nurse Practitioner Family; Visit Provider Surgery
DX: I87.2 Venous insufficiency (chronic) (peripheral) (principal); L97.822 Non-pressure chronic ulcer of other part of left lower leg with fat layer exposed; L97.812 Non-pressure chronic ulcer of other part of right lower leg with fat layer exposed; L98.8 Other specified disorders of the skin and subcutaneous tissue; R60.0 Localized edema
CPT/HCPCS: 11042

== ENCOUNTER → 2024-05-31 12:05 | Outpatient (CLI) | payer MEDICARE, MEDICAID, SELFPAY ==
--- NOTE | 2024-05-31 12:06 | DI.US.S_ITS ---
PROCEDURE: US ARTERIAL DUPLEX LE BI INDICATIONS: eval arterial status LE TECHNIQUE: Color and pulse Doppler interrogation was performed of both lower extremity arterial systems, with image documentation. COMPARISON: None. FINDINGS: Right lower extremity: Common femoral artery: 199 cm/sec, with monophasic flow. Deep femoral artery: 171 cm/sec, with monophasic flow. Proximal superficial femoral artery: 103 cm/sec, with monophasic flow. Mid superficial femoral artery: 347 cm/sec, with monophasic flow. Distal superficial femoral artery: 71 through 195 cm/sec, with monophasic flow. Popliteal artery: 19 cm/sec, with monophasic flow. Posterior tibial artery: 15 cm/sec, with monophasic flow. Anterior tibial artery/dorsalis pedis: Dorsalis pedis could not be measured. Anterior tibial artery at the guerrier measures 15 cm/sec, with monophasic flow. Zamorano-scale imaging description: Extensive atherosclerotic plaque. Left lower extremity: Common femoral artery: 113 cm/sec, with triphasic flow. Deep femoral artery: 126 cm/sec, with monophasic flow. Proximal superficial femoral artery: 26 cm/sec, with monophasic flow. Mid superficial femoral artery: 279 cm/sec, with monophasic flow. Distal superficial femoral artery: 18 cm/sec, with monophasic flow. Popliteal artery: 33 cm/sec, with monophasic flow. Posterior tibial artery: 21 cm/sec, with monophasic flow. Anterior tibial artery/dorsalis pedis: 11 cm/sec, with monophasic flow. Zamorano-scale imaging description: Extensive atherosclerotic plaque. IMPRESSION: Monophasic waveform in the right common femoral artery, suggestive of iliac disease. Hemodynamically significant stenosis in the mid superficial femoral artery, with peak systolic velocity criteria of 347 centimeters/second. Transition of triphasic to monophasic waveforms from the left common femoral artery to the superficial femoral artery, suggestive of hemodynamically significant stenosis. Hemodynamically significant stenosis of the mid superficial femoral artery, with peak systolic velocity of 279 centimeters/second. Right dorsalis pedis artery not seen, probably occluded. Dictated by: Martin Beckham M.D. on 06/05/2024 at 14:19 Approved by: Martin Beckham M.D. on 06/05/2024 at 14:22
== END ==
PROVIDERS: PCP Nurse Practitioner Family; Referring Provider Surgery; Visit Provider Surgery
DX: L97.822 Non-pressure chronic ulcer of other part of left lower leg with fat layer exposed (principal); L97.212 Non-pressure chronic ulcer of right calf with fat layer exposed; I70.203 Unspecified atherosclerosis of native arteries of extremities, bilateral legs
CPT/HCPCS: 93925

== ENCOUNTER → 2024-06-05 12:14 | Outpatient (CLI) | payer MEDICARE, MEDICAID, SELFPAY | LOC: WC 12:15 | PROVIDERS: PCP Nurse Practitioner Family; Referring Provider Nurse Practitioner Family; Visit Provider Surgery | DX: L97.212 Non-pressure chronic ulcer of right calf with fat layer exposed (principal); I87.2 Venous insufficiency (chronic) (peripheral); R60.0 Localized edema | CPT/HCPCS: 11042 ==

== ENCOUNTER → 2024-06-07 14:01 | Outpatient (CLI) | payer MEDICARE, MEDICAID, SELFPAY ==
[2024-06-07 15:59] LABS: INR 1.9 (0.9-1.3); Prothrombin Time 20.8 SECONDS (9.4-12.5)
== END ==
PROVIDERS: PCP Nurse Practitioner Family; Referring Provider Nurse Practitioner Family; Visit Provider Nurse Practitioner Family
DX: Z79.01 Long term (current) use of anticoagulants (principal)
CPT/HCPCS: 36415; 85610

== ENCOUNTER → 2024-06-19 11:23 | Outpatient (CLI) | payer MEDICARE, MEDICAID, SELFPAY | PROVIDERS: PCP Nurse Practitioner Family; Referring Provider Nurse Practitioner Family; Visit Provider Surgery | DX: I87.2 Venous insufficiency (chronic) (peripheral) (principal); L97.212 Non-pressure chronic ulcer of right calf with fat layer exposed; L97.822 Non-pressure chronic ulcer of other part of left lower leg with fat layer exposed; I73.9 Peripheral vascular disease, unspecified; L98.8 Other specified disorders of the skin and subcutaneous tissue | CPT/HCPCS: 11042; 99213 ==

== ENCOUNTER → 2024-06-26 11:19 | Outpatient (CLI) | payer MEDICARE, MEDICAID, SELFPAY | PROVIDERS: PCP Nurse Practitioner Family; Referring Provider Nurse Practitioner Family; Visit Provider Surgery | DX: I87.2 Venous insufficiency (chronic) (peripheral) (principal); L97.822 Non-pressure chronic ulcer of other part of left lower leg with fat layer exposed; R60.0 Localized edema; L98.8 Other specified disorders of the skin and subcutaneous tissue | CPT/HCPCS: 11042 ==

== ENCOUNTER → 2024-07-03 11:18 | Outpatient (CLI) | payer MEDICARE, MEDICAID, SELFPAY | LOC: WC 11:19 | PROVIDERS: PCP Nurse Practitioner Family; Referring Provider Nurse Practitioner Family; Visit Provider Surgery | DX: I87.2 Venous insufficiency (chronic) (peripheral) (principal); L97.822 Non-pressure chronic ulcer of other part of left lower leg with fat layer exposed; I73.9 Peripheral vascular disease, unspecified; R60.0 Localized edema | CPT/HCPCS: 97602; 99213 ==

== ENCOUNTER → 2024-07-10 11:29 | Outpatient (CLI) | payer MEDICARE, MEDICAID, SELFPAY | LOC: WC 11:36 | PROVIDERS: PCP Nurse Practitioner Family; Referring Provider Nurse Practitioner Family; Visit Provider Surgery | DX: Z87.2 Personal history of diseases of the skin and subcutaneous tissue (principal); R60.0 Localized edema | CPT/HCPCS: 99213 ==

== ENCOUNTER → 2024-07-17 13:47 | Outpatient (CLI) | payer MEDICARE, MEDICAID, SELFPAY | LOC: WC 13:50 | PROVIDERS: PCP Nurse Practitioner Family; Referring Provider Nurse Practitioner Family; Visit Provider Surgery | DX: I87.2 Venous insufficiency (chronic) (peripheral) (principal); L97.822 Non-pressure chronic ulcer of other part of left lower leg with fat layer exposed; R60.0 Localized edema | CPT/HCPCS: 99211; 99213 ==

== ENCOUNTER → 2024-07-24 12:05 | Outpatient (CLI) | payer MEDICARE, MEDICAID, SELFPAY | PROVIDERS: PCP Nurse Practitioner Family; Referring Provider Nurse Practitioner Family; Visit Provider Surgery | DX: Z87.2 Personal history of diseases of the skin and subcutaneous tissue (principal) | CPT/HCPCS: 99211; 99213 ==

== ENCOUNTER → 2024-08-19 15:45 | Outpatient (CLI) | payer MEDICARE, MEDICAID, SELFPAY ==
[2024-08-19 17:39] LABS: Prothrombin Time 22.6 SECONDS (9.4-12.5)
== END ==
PROVIDERS: PCP Nurse Practitioner Family; Referring Provider Nurse Practitioner Family; Visit Provider Nurse Practitioner Family
DX: I48.11 Longstanding persistent atrial fibrillation (principal); Z79.01 Long term (current) use of anticoagulants
CPT/HCPCS: 36415; 85610

== ENCOUNTER → 2024-11-08 10:12 | Outpatient (CLI) | payer MEDICARE, MEDICAID, SELFPAY ==
[2024-11-08 10:47] LABS: Hematocrit 41.3 % (36-46); Hemoglobin 13.8 g/dL (12.0-16.0)
[2024-11-08 10:59] LABS: Prothrombin Time 51.4 SECONDS (9.4-12.5)
[2024-11-08 11:21] LABS: INR 4.7 (0.9-1.3)
== END ==
PROVIDERS: PCP Nurse Practitioner Family; Referring Provider Nurse Practitioner Family; Visit Provider Registered Nurse
DX: I48.11 Longstanding persistent atrial fibrillation (principal)
CPT/HCPCS: 36415; 85014; 85018; 85610

== ENCOUNTER → 2024-11-11 09:31 | Outpatient (CLI) | payer MEDICARE, MEDICAID, SELFPAY ==
[2024-11-11 10:33] LABS: INR 2.0 (0.9-1.3); Prothrombin Time 22.7 SECONDS (9.4-12.5)
== END ==
PROVIDERS: PCP Nurse Practitioner Family; Referring Provider Nurse Practitioner Family; Visit Provider Nurse Practitioner Family
DX: I48.11 Longstanding persistent atrial fibrillation (principal); Z79.01 Long term (current) use of anticoagulants
CPT/HCPCS: 36415; 85610

== ENCOUNTER 2024-12-11 08:37 | Emergency (ER) | payer MEDICARE, MEDICAID, SELFPAY ==
[2024-12-11] VITALS (10 sets, daily range): BP systolic 144–206; BP diastolic 93–109; PULSE 57–101; RESP 18; TEMP 36.7; O2SAT 83–96; BMI 17.7
--- NOTE | 2024-12-11 08:59 | ED.FALL ---
HPI - Fall General Chief Complaint: Trauma Stated Complaint: GLF on thinners Time Seen by Provider: 12/11/24 08:37 History of Present Illness HPI Narrative: 84-year-old female history of atrial fibrillation, cardiomyopathy, valve disorder, history of left-sided CVA, presents from assisted living facility with witnessed ground level fall with right elbow injury. Patient is a poor historian but denies any headache, dizziness, chest pain, neck pain, shortness of breath, nausea, vomiting, abdominal pain, arm or leg pain or loss of consciousness. Other than what is stated 14 point review of system is negative. Related Data Previous Rx's ?Medication ?Instructions ?Recorded melatonin 5 mg capsule 5 mg PO .PRN #60 caps 05/03/24 warfarin 1 mg tablet See Rx Instructions .Route 05/27/24 .COMPLEX #75 tabs lisinopril 10 mg tablet 10 mg PO DAILY #90 tabs 10/11/24 metoprolol tartrate 25 mg tablet 12.5 mg (1/2 x 25 mg) PO BID #45 10/11/24 tabs Allergies Allergy/AdvReac Type Severity Reaction Status Date / Time Horse/Equine Containing Allergy Unknown Verified 12/11/24 08:48 Products rabies vaccine,purified Allergy Unknown Verified 12/11/24 08:48 chick-rolan (RABIES VACCINE ([facility])) Review of Systems Review of Systems ROS Unobtainable: All systems reviewed & are unremarkable except as noted in HPI and below Patient History Medical History Anesthesia Suicidal ideation (~2014) Vision disorder Depression Osteoarthritis (~1985) Shortness of breath (~2014) Stroke (~2014) Fractures Acne (~1948) Measles (~1946) Herpes (~1974) Endometriosis (~1999) History of urinary incontinence Onychomycosis (04/17/17) Surgical History History of hip replacement (~2007) Family History Father Diabetes mellitus Brother Suicide Grandfather Heart disease Grandmother Heart disease Mother Alzheimer's disease Grandfather Alzheimer's disease Grandmother Tuberculosis Social History Smoking Status: Never smoker alcohol intake frequency: holidays/special occasions only Exam Narrative Exam Narrative: GENERAL: [84] year old patient appears stated age. Well-developed patient, in mild distress. HEAD: Atraumatic. Normocephalic. EYES: Pupils equal round and reactive. Extraocular motions intact. No scleral icterus. No injection or drainage. ENT: Nose without bleeding, purulent drainage. Throat without erythema, tonsillar hypertrophy or exudate. Airway patent. NECK: Trachea midline. Non tender CARDIOVASCULAR: Regular rate and rhythm without murmurs, gallops, or rubs. RESPIRATORY: Clear to auscultation. Breath sounds equal bilaterally. No wheezes, rales, or rhonchi. GASTROINTESTINAL: Abdomen soft, non-tender, nondistended. EXTREMITIES: Right elbow hematoma medium orange size, motor sensory intact +2 radial pulse cap refill less than 2 seconds. She has full range of motion of the of the right shoulder elbow wrist all fingers and thumb in all directions with no difficulty. BACK: Nontender without deformity or crepitance. No flank tenderness. NEURO: AOx3. SKIN: No rash or erythema of visible areas Initial Vital Signs Initial Vital Signs: Vital Signs Pulse Oximetry 89 L 12/11/24 08:38 Course Orders Ordered: ED Orders 12/11/24 09:02 XR chest 1V Stat XR elbow RT min 3V Stat XR pelvis 1-2V Stat [facility] Creatine Kinase MB Routine EKG-12 Lead Stat 12/11/24 09:28 Complete Blood Count AUTO DIFF Stat Comprehensive Metabolic Panel Stat Lipase Stat Magnesium Stat NT-proBNP (BNP-Adult 18+) Stat Troponin I Stat Discontinued Medications Hydrocodone Bitart/Acetaminophen (Hydrocodone/Acet 5/325 Tablet) 1 tab PO NOW ONE Stop: 12/11/24 10:48 Last Admin: 12/11/24 10:53 Dose: 1 tab Documented By: SBF Vital Signs Vital signs: Vital Signs - 8 hr 12/11/24 08:38 12/11/24 08:39 12/11/24 08:39 Temperature Pulse Rate 83 Respiratory Rate Blood Pressure 144/101 H Pulse Oximetry 89 L 94 Oxygen Delivery Method 12/11/24 08:48 12/11/24 09:00 12/11/24 09:00 Temperature 98.0 F Pulse Rate 101 H 87 Respiratory Rate 18 Blood Pressure 201/109 H 201/109 H Pulse Oximetry 92 96 Oxygen Delivery Method Room Air 12/11/24 09:15 12/11/24 09:15 12/11/24 09:30 Temperature Pulse Rate 99 H 81 Respiratory Rate Blood Pressure 192/106 H Pulse Oximetry 88 L 96 Oxygen Delivery Method 12/11/24 10:00 Temperature Pulse Rate 92 H Respiratory Rate Blood Pressure Pulse Oximetry 89 L Oxygen Delivery Method MDM - Fall Lab Data 12/11/24 09:28 12/11/24 09:28 Labs: Lab Results 12/11/24 Range/Units 09:28 WBC 11.9 H (4.5-11.0) X10^3/uL RBC 4.65 (4.0-5.2) X10^6/uL Hgb 14.3 (12.0-16.0) g/dL Hct 43.8 (36-46) % MCV 94.1 (80-100) fL MCH 30.8 (26-34) PG MCHC 32.7 (30-36) % RDW 14.9 H (11.6-14.8) % Plt Count 182 (150-400) X10^3/uL Neut % (Auto) 83.8 H (50-75) % Lymph % (Auto) 8.6 L (25-40) % [place] % (Auto) 6.1 (3-14) % Eos % (Auto) 1.0 L (2-4) % Baso % (Auto) 0.5 (0-2) % Neut # (Auto) 58648 H (8092-9654) /uL Lymph # (Auto) 1000 L (3761-6279) /uL [place] # (Auto) 700 (0-900) /uL Eos # (Auto) 100 (0-450) /uL Baso # (Auto) 100 (0-100) /uL Sodium 139 (137-145) mmol/L Potassium 3.4 (3.4-5.1) mmol/L Chloride 101 (98-107) mmol/L Carbon Dioxide 28 (22-32) mmol/L BUN 21 H (7-17) mg/dL Creatinine 0.94 (0.52-1.04) mg/dL Estimated GFR 60 (>60) mL/min BUN/Creatinine Ratio 22.3 H (6-22) Glucose 95 (70-99) mg/dL Calcium 9.1 (8.4-10.2) mg/dL Magnesium 1.9 (1.6-2.3) mg/dL Total Bilirubin 0.9 (0.2-1.3) mg/dL AST 33 (14-36) IU/L ALT 26 (<35) IU/L Alkaline Phosphatase 117 (38-126) U/L Troponin I 0.020 (0.01-0.034) ng/mL NT-Pro-B Natriuret Pep 5190 H (<450) pg/mL Total Protein 8.1 (6.3-8.2) g/dL Albumin 4.6 (3.5-5.0) g/dL Globulin 3.5 (1.7-4.1) g/dL Albumin/Globulin Ratio 1.3 (1.0-2.8) Lipase 231 (23-300) U/L Imaging Data Extremity x-ray #1: Radiologist's Impression: [address] [address] XRay Report Signed Patient: Luz Newby MR#: [id number] : 1940 Acct:[id number] Age/Sex: 84 / F Date of Service: 12/11/24 Loc: ED Accession Number: [id number] Procedure: XR chest 1V Ordering Provider: Casper Rojas D.O. PROCEDURE: XR CHEST 1V INDICATIONS: trauma TECHNIQUE: One view of the chest was acquired. COMPARISON: None. FINDINGS: Surgical changes and devices: None. Lungs and pleura: Lungs are clear. No significant pleural effusions or pneumothorax. Left costophrenic is out of field of view. Mediastinum: Mediastinal contours appear normal. Heart size is normal. Tortuous aorta. Aortic arch is calcified indicating atherosclerosis. Bones and chest wall: No suspicious bony lesions. Overlying soft tissues appear unremarkable. IMPRESSION: No acute cardiopulmonary abnormality is seen. Extremity x-ray #2: Radiologist's Impression: [address] [address] XRay Report Signed Patient: Luz Newby MR#: [id number] : 1940 Acct:[id number] Age/Sex: 84 / F Date of Service: 12/11/24 Loc: ED Accession Number: [id number] Procedure: XR elbow RT min 3V Ordering Provider: Casper Rojas D.O. PROCEDURE: XR ELBOW RT MIN 3V INDICATIONS: trauma TECHNIQUE: 3 views of the elbow were acquired. COMPARISON: None. FINDINGS: Bones: No fractures or dislocations. No suspicious bony lesions. Soft tissues: No elbow joint effusion. No suspicious soft tissue calcifications. Marked soft tissue swelling at the medial aspect of the elbow. IMPRESSION: No acute bony abnormality or significant joint effusion. Marked medial soft tissue swelling/contusion. Extremity x-ray #3: Radiologist's Impression: [address] [address] XRay Report Signed Patient: Luz Newby MR#: [id number] : 1940 Acct:[id number] Age/Sex: 84 / F Date of Service: 12/11/24 Loc: ED Accession Number: [id number] Procedure: XR pelvis 1-2V Ordering Provider: Casper Rojas D.O. PROCEDURE: XR PELVIS 1-2V INDICATIONS: fall trauma TECHNIQUE: 1 view(s) of the pelvis acquired. COMPARISON: None. FINDINGS: Bones: Status post internal fixation of proximal right femur using 4 partially threaded screws. No evidence of hardware complication or periprosthetic fracture. No fractures or dislocations. No suspicious bony lesions. Soft tissues: Visualized bowel gas pattern is normal. No suspicious soft tissue calcifications. IMPRESSION: No acute bony abnormality. If there is high clinical concern for internal derangement, consider further evaluation with CT. ECG Data Interpretation: Afib HR 98 CA undetermined QRS [address]-t wave change No previous to compare MDM Narrative Medical decision making narrative: All lab work, vital signs, nurse triage note, medication list, previous ER visits, and all imaging studies reviewed. WBC 11.9 hemoglobin 14.3 the 180 to sodium 139 potassium 3.4 chloride 101 CO2 28 BUN 21 creatinine 0.94 troponin 1st set 0.020 2nd set 0.014 BNP 5190. Chest x-ray showed no acute process pelvic x-ray showed no acute process. Elbow x-ray showed no acute bony abnormality or significant joint effusion. Marked medial soft tissue swelling contusion. Differential diagnosis STEMI NSTEMI atrial fibrillation fracture dislocation hematoma. We will refer patient to orthopedics for follow up care. Discharge Plan Departure Patient Disposition: Home Clinical Impression: Fall, Hematoma of elbow Activity Restrictions/Additional Instructions: Return with new or worsening symptoms. Follow up with [facility] referral. Prescriptions: No Action warfarin 1 mg tablet See Rx Instructions .ROUTE .COMPLEX Qty: 75 1RF Protocol: Dose Management Condition: Monday (Week One) Dose/Route: 1 mg Instruction: 1 x 1 mg tablet Condition: Monday Dose/Route: 0.5 mg Instruction: 0.5 x 1 mg tablets Condition: Monday Dose/Route: 1 mg Instruction: 1 x 1 mg tablet Condition: Monday Dose/Route: 1 mg Instruction: 1 x 1 mg tablet Condition: Dose/Route: 0.5 mg Instruction: 0.5 x 1 mg tablets Condition: Monday Dose/Route: 1 mg Instruction: 1 x 1 mg tablet Condition: Monday Dose/Route: 0.5 mg Instruction: 0.5 x 1 mg tablets Condition: Monday ( Two) Dose/Route: 1 mg Instruction: 1 x 1 mg tablet Condition: Monday Dose/Route: 0.5 mg Instruction: 0.5 x 1 mg tablets Condition: Monday Dose/Route: 1 mg Instruction: 1 x 1 mg tablet Condition: Monday Dose/Route: 1 mg Instruction: 1 x 1 mg tablet Condition: Dose/Route: 0.5 mg Instruction: 0.5 x 1 mg tablets Condition: Monday Dose/Route: 1 mg Instruction: 1 x 1 mg tablet Condition: Monday Dose/Route: 0.5 mg Instruction: 0.5 x 1 mg tablets Protocol Text: Adjustment Start Date: Monday08/20/24 INR Value: 2.0 INR Date: 08/19/24 Recheck Date: 09/17/24 Dose Instruction: Take 1/2 tablet (0.5mg) two days a week and 1 tablet (1mg) daily the other five days. Rx Instructions: Take 1/2 tablet (0.5mg) Monday, and 1 tablet (1mg) all other days; or as directed. lisinopril 10 mg tablet 10 mg PO DAILY Qty: 90 1RF metoprolol tartrate 25 mg tablet 12.5 mg PO BID Qty: 45 1RF melatonin 5 mg capsule 5 mg PO .PRN Qty: 60 0RF Stand Alone Forms: Patient Portal/API
--- NOTE | 2024-12-11 09:02 | EKG_ITS ---
[place] [id number] [place] [id number] Test Date: 2024-12-11 Pat Name: Luz Newby Department: Room: Gender: Female Ferry Captain: GLORIA : 1940 Requested By: Order Number: [id number] Reading MD: Rafael Sanchez Measurements Intervals [place] Rate: 98 P: MN: QRS: 21 QRSD: 94 T: 53 QT: 346 QTc: 441 Interpretive Statements Atrial fibrillation Moderate voltage criteria for LVH, may be normal variant ( Sokolow-Mckenzie , Prasanna product ) Nonspecific ST and T wave abnormality Electronically Signed On 12-11-2024 10:34:58 PDT by Rafael Sanchez
--- NOTE | 2024-12-11 09:02 | DI.RAD.S_ITS ---
PROCEDURE: XR PELVIS 1-2V INDICATIONS: fall trauma TECHNIQUE: 1 view(s) of the pelvis acquired. COMPARISON: None. FINDINGS: Bones: Status post internal fixation of proximal right femur using 4 partially threaded screws. No evidence of hardware complication or periprosthetic fracture. No fractures or dislocations. No suspicious bony lesions. Soft tissues: Visualized bowel gas pattern is normal. No suspicious soft tissue calcifications. IMPRESSION: No acute bony abnormality. If there is high clinical concern for internal derangement, consider further evaluation with CT. Approved by: Lakesha Phillips M.D.,Ph.D. on 12/11/2024 at 10:50
--- NOTE | 2024-12-11 09:02 | DI.RAD.S_ITS ---
PROCEDURE: XR ELBOW RT MIN 3V INDICATIONS: trauma TECHNIQUE: 3 views of the elbow were acquired. COMPARISON: None. FINDINGS: Bones: No fractures or dislocations. No suspicious bony lesions. Soft tissues: No elbow joint effusion. No suspicious soft tissue calcifications. Marked soft tissue swelling at the medial aspect of the elbow. IMPRESSION: No acute bony abnormality or significant joint effusion. Marked medial soft tissue swelling/contusion. Approved by: Lakesha Phillips M.D.,Ph.D. on 12/11/2024 at 10:48
--- NOTE | 2024-12-11 09:02 | DI.RAD.S_ITS ---
PROCEDURE: XR CHEST 1V INDICATIONS: trauma TECHNIQUE: One view of the chest was acquired. COMPARISON: None. FINDINGS: Surgical changes and devices: None. Lungs and pleura: Lungs are clear. No significant pleural effusions or pneumothorax. Left costophrenic is out of field of view. Mediastinum: Mediastinal contours appear normal. Heart size is normal. Tortuous aorta. Aortic arch is calcified indicating atherosclerosis. Bones and chest wall: No suspicious bony lesions. Overlying soft tissues appear unremarkable. IMPRESSION: No acute cardiopulmonary abnormality is seen. Approved by: Lakesha Phillips M.D.,Ph.D. on 12/11/2024 at 10:47
[2024-12-11 09:45] LABS: Add Manual Diff / Slide Review NO; Hematocrit 43.8 % (36-46); Hemoglobin 14.3 g/dL (12.0-16.0); Lymphocytes Absolute Auto 1000 /uL (1100-4500); Mean Corpuscular HGB Conc 32.7 % (30-36); Mean Corpuscular Hemoglobin 30.8 PG (26-34); Mean Corpuscular Volume 94.1 fL (80-100); Platelet Count 182 X10^3/uL (150-400)
[2024-12-11 09:56] LABS: Alanine Aminotransferase 26 IU/L (<35); Albumin 4.6 g/dL (3.5-5.0); Albumin Globulin Ratio 1.3 (1.0-2.8); Alkaline Phosphatase 117 U/L (38-126); Blood Urea Nitrogen 21 mg/dL (7-17); Calcium 9.1 mg/dL (8.4-10.2); Carbon Dioxide 28 mmol/L (22-32); Chloride 101 mmol/L (98-107); Estimated Glomerular Filt Rate 60 mL/min (>60); Globulin 3.5 g/dL (1.7-4.1); Glucose 95 mg/dL (70-99); HEMOLYSIS 26 (0-50); Lipase 231 U/L (23-300); Magnesium 1.9 mg/dL (1.6-2.3); Potassium 3.4 mmol/L (3.4-5.1); Sodium 139 mmol/L (137-145); Total Protein 8.1 g/dL (6.3-8.2)
[2024-12-11 10:07] LABS: NT-proBNP (BNP-Adult 18+) 5190 pg/mL (<450); Troponin I 0.020 ng/mL (0.01-0.034)
[2024-12-11 11:47] LABS: Troponin I 0.014 ng/mL (0.01-0.034)
[2024-12-12 07:13] LABS: Labcorp Creatine Kinase MB 4.1 ng/mL (0.0-5.3)
== END 2024-12-11 12:30 | disposition home or self-care (01) ==
PROVIDERS: Emergency Provider Family Medicine
DX: S50.01XA Contusion of right elbow, initial encounter (principal); W18.30XA Fall on same level, unspecified, initial encounter; Z79.01 Long term (current) use of anticoagulants; Z86.73 Personal history of transient ischemic attack (TIA), and cerebral infarction without residual deficits
CPT/HCPCS: 36415; 71045; 72170; 73080; 80053; 82553; 83690; 83735; 83880; 84484; 85025; 93005; 99284

== ENCOUNTER 2025-01-18 17:52 | Emergency (ER) | payer MEDICARE, MEDICAID, SELFPAY ==
[2025-01-18 17:59] VITALS: BP 187/115; PULSE 70; RESP 16; TEMP 36.2; O2SAT 98; BMI 17.7
--- NOTE | 2025-01-18 18:02 | EKG_ITS ---
[place] [id number] [place] [id number] Test Date: 2025-01-18 Pat Name: Luz Newby Department: [facility] Room: Gender: Female A And P Technician: manuela : 1940 Requested By: Order Number: [id number] Reading MD: Casper Trevizo MD Measurements Intervals [place] Rate: 81 P: FL: QRS: 172 QRSD: 94 T: 171 QT: 390 QTc: 453 Interpretive Statements Suspect arm lead reversal, interpretation assumes no reversal Atrial fibrillation Biventricular hypertrophy Lateral infarct , age undetermined NO SIGNIFICANT CHANGE FROM PRIOR TRACING Electronically Signed On 01-19-2025 8:31:48 PST by Casper Trevizo MD
--- NOTE | 2025-01-18 18:02 | DI.RAD.S_ITS ---
PROCEDURE: XR CHEST 1V INDICATIONS: Chest Pain TECHNIQUE: One view of the chest was acquired. COMPARISON: [facility], CR, XR CHEST 1V, 12/11/2024, 9:24. FINDINGS: Surgical changes and devices: None. Lungs and pleura: Hyperinflated lungs with flattening of the diaphragms. Mild interstitial prominence. No pleural effusion. No pneumothorax. Mediastinum: Cardiomegaly. Bones and chest wall: No suspicious bony lesions. Overlying soft tissues appear unremarkable. IMPRESSION: No acute cardiopulmonary abnormality is seen. Dictated by: Fernando Howell M.D. on 01/18/2025 at 17:20 Approved by: Fernando Howell M.D. on 01/18/2025 at 17:21
[2025-01-18 18:26] LABS: INR 1.4 (0.9-1.3); Prothrombin Time 15.7 SECONDS (9.4-12.5)
[2025-01-18 18:27] LABS: Add Manual Diff / Slide Review NO; Hematocrit 39.9 % (36-46); Hemoglobin 13.3 g/dL (12.0-16.0); Lymphocytes Absolute Auto 1200 /uL (1100-4500); Mean Corpuscular HGB Conc 33.2 % (30-36); Mean Corpuscular Hemoglobin 31.2 PG (26-34); Mean Corpuscular Volume 94.0 fL (80-100); Platelet Count 212 X10^3/uL (150-400)
--- NOTE | 2025-01-18 18:27 | PC.NURSE ---
Pt able to ambulate to restroom with standyby assist
[2025-01-18 18:29] LABS: PTT Partial Thromboplastin Tim 36 SECONDS (25.1-36.5)
[2025-01-18 18:31] LABS: Alanine Aminotransferase 13 IU/L (<35); Albumin 3.9 g/dL (3.5-5.0); Albumin Globulin Ratio 1.2 (1.0-2.8); Alkaline Phosphatase 208 U/L (38-126); Blood Urea Nitrogen 31 mg/dL (7-17); Calcium 8.9 mg/dL (8.4-10.2); Carbon Dioxide 29 mmol/L (22-32); Chloride 104 mmol/L (98-107); Creatine Kinase 27 U/L (30-135); Estimated Glomerular Filt Rate > 60 mL/min (>60); Globulin 3.2 g/dL (1.7-4.1); Glucose 101 mg/dL (70-99); HEMOLYSIS < 15 (0-50); Lipase 73 U/L (23-300); Magnesium 2.1 mg/dL (1.6-2.3); Potassium 4.1 mmol/L (3.4-5.1); Sodium 139 mmol/L (137-145); Total Protein 7.1 g/dL (6.3-8.2)
--- NOTE | 2025-01-18 18:37 | PC.NURSE ---
pt complaining of being anxious because she does not know what is going on. Pt informed that everyone in the ED wants to make sure she is safe. Pt states I know but i just can't stop feeling scared when I am alone
[2025-01-18 18:42] LABS: NT-proBNP (BNP-Adult 18+) 6970 pg/mL (<450); Troponin I 0.021 ng/mL (0.01-0.034)
--- NOTE | 2025-01-18 19:21 | ED.GENADULT ---
HPI - General Adult General Chief complaint: Hypertension Stated complaint: HTN Time Seen by Provider: 01/18/25 19:20 Source: patient and EMS Mode of arrival: EMS History of Present Illness HPI narrative: 84-year-old female patient with a history of hypertension and atrial fibrillation who presents with elevated blood pressure at home with a systolic over 200. Very mild dizziness earlier but none now. Otherwise No symptoms. No chest pain, shortness of breath or headache. Related Data Previous Rx's ?Medication ?Instructions ?Recorded melatonin 5 mg capsule 5 mg PO .PRN #60 caps 05/03/24 warfarin 1 mg tablet See Rx Instructions .Route 05/27/24 .COMPLEX #75 tabs lisinopril 10 mg tablet 10 mg PO DAILY #90 tabs 10/11/24 metoprolol tartrate 25 mg tablet 12.5 mg (1/2 x 25 mg) PO BID #45 10/11/24 tabs Allergies Allergy/AdvReac Type Severity Reaction Status Date / Time Horse/Equine Containing Allergy Unknown Verified 12/11/24 08:48 Products rabies vaccine,purified Allergy Unknown Verified 12/11/24 08:48 chick-rolan (RABIES VACCINE ([facility])) Review of Systems Review of Systems ROS Unobtainable: All systems reviewed & are unremarkable except as noted in HPI and below Cardiovascular Cardiovascular: Reports as per HPI Patient History Medical History Anesthesia Suicidal ideation (~2014) Vision disorder Depression Osteoarthritis (~1985) Shortness of breath (~2014) Stroke (~2014) Fractures Acne (~1948) Measles (~1946) Herpes (~1974) Endometriosis (~1999) History of urinary incontinence Onychomycosis (04/17/17) Surgical History History of hip replacement (~2007) Family History Father Diabetes mellitus Brother Suicide Grandfather Heart disease Grandmother Heart disease Mother Alzheimer's disease Grandfather Alzheimer's disease Grandmother Tuberculosis alcohol intake frequency: holidays/special occasions only Exam Initial Vital Signs Initial Vital Signs: Vital Signs Temperature 97.1 F L 01/18/25 17:59 Pulse Rate 70 01/18/25 17:59 Respiratory Rate 16 01/18/25 17:59 Blood Pressure 187/115 H 01/18/25 17:59 Pulse Oximetry 98 01/18/25 17:59 Oxygen Delivery Method Room Air 01/18/25 17:59 Course Course Course Narrative: Nurse called the patient's caregivers and they did not give her her metoprolol this evening. We administered her evening dose of 12.5 mg. Orders Ordered: ED Orders 01/18/25 18:02 XR chest 1V Stat EKG-12 Lead Stat 01/18/25 18:07 Complete Blood Count AUTO DIFF Stat Comprehensive Metabolic Panel Stat Lipase Stat Magnesium Stat NT-proBNP (BNP-Adult 18+) Stat PTT Partial Thromboplastin Sushil Stat Prothrombin Time INR Stat Troponin & CK Cardiac Panel Stat 01/18/25 19:50 Urine Culture Stat Urine Microscopic Stat Discontinued Medications Aspirin (Aspirin 81 Mg Chew Tab) 324 mg PO NOW ONE Stop: 01/18/25 18:03 Last Admin: 01/18/25 18:24 Dose: Not Given Documented By: JUANY Metoprolol Tartrate (Metoprolol Ir 25 Mg Tablet) 12.5 mg PO NOW ONE Stop: 01/18/25 20:16 Last Admin: 01/18/25 20:21 Dose: 12.5 mg Documented By: RADHA Vital Signs Vital signs: Vital Signs - 8 hr 01/18/25 17:59 01/18/25 19:31 01/18/25 19:31 Temperature 97.1 F L Pulse Rate 70 97 H Respiratory Rate 16 27 H Blood Pressure 187/115 H 221/107 H Pulse Oximetry 98 97 Oxygen Delivery Method Room Air 01/18/25 20:01 01/18/25 20:01 01/18/25 20:02 Temperature Pulse Rate 71 76 Respiratory Rate 20 Blood Pressure 199/107 H Pulse Oximetry 83 L 95 Oxygen Delivery Method 01/18/25 20:34 Temperature Pulse Rate Respiratory Rate Blood Pressure 166/99 H Pulse Oximetry Oxygen Delivery Method Medical Decision Making Lab Data Lab results reviewed: Yes I reviewed the patient's lab results. 01/18/25 18:07 01/18/25 18:07 Labs: Lab Results 01/18/25 01/18/25 Range/Units 18:07 19:50 WBC 7.4 (4.5-11.0) X10^3/uL RBC 4.25 (4.0-5.2) X10^6/uL Hgb 13.3 (12.0-16.0) g/dL Hct 39.9 (36-46) % MCV 94.0 (80-100) fL MCH 31.2 (26-34) PG MCHC 33.2 (30-36) % RDW 15.2 H (11.6-14.8) % Plt Count 212 (150-400) X10^3/uL Neut % (Auto) 70.2 (50-75) % Lymph % (Auto) 16.0 L (25-40) % [place] % (Auto) 11.2 (3-14) % Eos % (Auto) 1.6 L (2-4) % Baso % (Auto) 1.0 (0-2) % Neut # (Auto) 5200 (9971-3544) /uL Lymph # (Auto) 1200 (3274-9831) /uL [place] # (Auto) 800 (0-900) /uL Eos # (Auto) 100 (0-450) /uL Baso # (Auto) 100 (0-100) /uL PT 15.7 H (9.4-12.5) SECONDS INR 1.4 H (0.9-1.3) APTT 36 (25.1-36.5) SECONDS Sodium 139 (137-145) mmol/L Potassium 4.1 (3.4-5.1) mmol/L Chloride 104 (98-107) mmol/L Carbon Dioxide 29 (22-32) mmol/L BUN 31 H (7-17) mg/dL Creatinine 0.90 (0.52-1.04) mg/dL Estimated GFR > 60 (>60) mL/min BUN/Creatinine Ratio 34.4 H (6-22) Glucose 101 H (70-99) mg/dL Calcium 8.9 (8.4-10.2) mg/dL Magnesium 2.1 (1.6-2.3) mg/dL Total Bilirubin 0.5 (0.2-1.3) mg/dL AST 24 (14-36) IU/L ALT 13 (<35) IU/L Alkaline Phosphatase 208 H (38-126) U/L Total Creatine Kinase 27 L (30-135) U/L Troponin I 0.021 (0.01-0.034) ng/mL NT-Pro-B Natriuret Pep 6970 H (<450) pg/mL Total Protein 7.1 (6.3-8.2) g/dL Albumin 3.9 (3.5-5.0) g/dL Globulin 3.2 (1.7-4.1) g/dL Albumin/Globulin Ratio 1.2 (1.0-2.8) Lipase 73 (23-300) U/L Urine RBC 0-1/hpf (0-5/HPF) Urine WBC 1-5/hpf (0-5/HPF) Ur Squamous Epith Cells 1-5 /hpf (0-5/HPF) Urine Bacteria Few (2-10) H (None) Ur Culture Indicated? Specimen cultured Micro UA Comment Vol Urine Centrifuged 10ml (spun) Urine Dip Bedside Urine Glucose Negative Bedside Urine Bilirubin - Negative Bedside Urine Ketone - Negative Urine Specific [place] 1.010 Bedside Urine Occult Blood - Negative Bedside Urine pH 7.0 Bedside Urine Protein - Negative Bedside Urine Urobilinogen - Negative Bedside Urine Nitrite - Negative Bedside Urine Leukocytes + 70 Esterase Point of care testing: Urine Dip Bedside Urine Glucose Negative Bedside Urine Bilirubin - Negative Bedside Urine Ketone - Negative Urine Specific [place] 1.010 Bedside Urine Occult Blood - Negative Bedside Urine pH 7.0 Bedside Urine Protein - Negative Bedside Urine Urobilinogen - Negative Bedside Urine Nitrite - Negative Bedside Urine Leukocytes + 70 Esterase ECG Data Attestation: I personally reviewed and interpreted this ECG as follows: ( Atrial fibrillation with a rate of 81. Left ventricular hypertrophy. No acute ischemic changes.) MDM Narrative Medical decision making narrative: Patient presents with elevated blood pressure measurements at the [facility] with no symptoms. patient has advanced directives indicate comfort care only and she has no discomfort. It seems that she was sent here inappropriately given that document. However we did administer her metoprolol dose which had not been given. She has asymptomatic severe hypertension which is not an emergent problem. In addition she is comfort care only. Patient is to follow up with her provider on blood pressure /hypertensive control and adjustment on medications. Discharge Plan Departure Patient Disposition: Home Clinical Impression: Elevated blood pressure reading Instructions: DI for High Blood Pressure Activity Restrictions/Additional Instructions: Assessment: Patient has asymptomatic severe hypertension which does not require emergent intervention. Also did not get her evening dose of metoprolol which we gave her here in the ER. In addition her POLST form says comfort care only. Therefore she does not need any intervention since she has no symptoms and does not uncomfortable at this time. Plan: Discussed patient's blood pressure control with her provider to see if he or she wants to make adjustments on the medications. Patient has had only be sent to the ER if she has symptoms causing discomfort the can not be controlled at her facility. Again this patient is comfort care only with no other interventions according to her POLST form. Prescriptions: No Action warfarin 1 mg tablet See Rx Instructions .ROUTE .COMPLEX Qty: 75 1RF Protocol: Dose Management Condition: Monday (Week One) Dose/Route: 1 mg Instruction: 1 x 1 mg tablet Condition: Monday Dose/Route: 0.5 mg Instruction: 0.5 x 1 mg tablets Condition: Monday Dose/Route: 1 mg Instruction: 1 x 1 mg tablet Condition: Monday Dose/Route: 1 mg Instruction: 1 x 1 mg tablet Condition: Dose/Route: 0.5 mg Instruction: 0.5 x 1 mg tablets Condition: Monday Dose/Route: 1 mg Instruction: 1 x 1 mg tablet Condition: Monday Dose/Route: 0.5 mg Instruction: 0.5 x 1 mg tablets Condition: Monday (Week Two) Dose/Route: 1 mg Instruction: 1 x 1 mg tablet Condition: Monday Dose/Route: 0.5 mg Instruction: 0.5 x 1 mg tablets Condition: Monday Dose/Route: 1 mg Instruction: 1 x 1 mg tablet Condition: Monday Dose/Route: 1 mg Instruction: 1 x 1 mg tablet Condition: Dose/Route: 0.5 mg Instruction: 0.5 x 1 mg tablets Condition: Monday Dose/Route: 1 mg Instruction: 1 x 1 mg tablet Condition: Monday Dose/Route: 0.5 mg Instruction: 0.5 x 1 mg tablets Protocol Text: Adjustment Start Date: Monday08/20/24 INR Value: 2.0 INR Date: 08/19/24 Recheck Date: 09/17/24 Dose Instruction: Take 1/2 tablet (0.5mg) two days a week and 1 tablet (1mg) daily the other five days. Rx Instructions: Take 1/2 tablet (0.5mg) Monday, and 1 tablet (1mg) all other days; or as directed. lisinopril 10 mg tablet 10 mg PO DAILY Qty: 90 1RF metoprolol tartrate 25 mg tablet 12.5 mg PO BID Qty: 45 1RF melatonin 5 mg capsule 5 mg PO .PRN Qty: 60 0RF Stand Alone Forms: Patient Portal/API
[2025-01-18 19:31] VITALS: BP 221/107; PULSE 97; RESP 27; O2SAT 97
[2025-01-18 20:01] VITALS: BP 199/107; PULSE 71; RESP 20; O2SAT 83
[2025-01-18 20:02] VITALS: PULSE 76; O2SAT 95
[2025-01-18 20:09] LABS: Culture Indicated Urine Specimen Cultured
[2025-01-18] MEDS: METOPROLOL IR 25 MG TABLET 12.5 MG PO (20:21)
--- NOTE | 2025-01-18 20:24 | PC.NURSE ---
At this time I spoke with the staff [employer] at [facility] regarding the patient's med list. Meds for hypertension include: Metoprolol 12.5mg BID and Lisinopril 10mg 8am [facility] reports that the patient was hypertensive 200/100 at the time when they were going to administer 12.5 mg of metoprolol. So instead of giving her meds, they sent her to the ER. I relayed this information to Dr. Conte, verbal order given for her to have her scheduled dose of 12.5 mg of metoprolol at this time prior to DC. Report completed at this time with [facility] with plan of care regarding probable UTI and hypertension. Ambulance en route for patient to return home.
--- NOTE | 2025-01-18 20:30 | PC.NURSE ---
Pat OCHOA spoke with [employer] [facility] at this time, she was informed that she does not have UTI and that plan of care is to monitor BP after meds given.
[2025-01-18 20:34] VITALS: BP 166/99
== END 2025-01-18 20:42 | disposition home or self-care (01) ==
PROVIDERS: Emergency Provider Emergency Medicine
DX: I10 Essential (primary) hypertension (principal); R42 Dizziness and giddiness
CPT/HCPCS: 36415; 71045; 80053; 81003; 81015; 82550; 83690; 83735; 83880; 84484; 85025; 85610; 85730; 87086; 93005; 99284